=== PATIENT | male | born 1965 | race Caucasian/White ===

== ENCOUNTER 2016-06-10 06:04 | Day surgery (SDC) | payer BC, OTHER ==
[2016-06-06 15:48] VITALS: BMI 21.5
[~2016-06-10 06:04] MED LIST: DEXAMETHASONE SOD PHOSPHATE 10 MG/ML 1 ML VIAL IV ONE; HYDROmorphone 1 MG/ML 1 ML SYRINGE IVP PRN; LIDOCAINE 1% 20 ML VIAL (10MG/ML) FOR IV START INTRADERMA PRN; MIDAZOLAM 2 MG/2 ML VIAL IV PRN; ONDANSETRON 4 MG/2 ML VIAL IVP ONE; SCOPOLAMINE 1.5MG/72HR PATCH TRANSDERM ONE; ceFAZolin 2 GM in SODIUM CHLORIDE 0.9% 100 ML IVPB ONE
[2016-06-10] MEDS ORDERED: LIDOCAINE 1% 20 ML VIAL (10MG/ML) FOR IV START INTRADERMA ONE (06:36)
[2016-06-10] MEDS: LACTATED RINGERS 1,000 ML IV SCH ×3 (06:36→20:15)
[2016-06-10] MEDS ORDERED: MIDAZOLAM 2 MG/2 ML VIAL IV ONE (07:05)
[2016-06-10] MEDS ORDERED: PROPOFOL 10 MG/ML 20 ML VIAL IV ONE (07:28)
[2016-06-10] MEDS ORDERED: LIDOCAINE 1% INJ 10MG/ML (20 ML MDV) ONE (07:28)
[2016-06-10] MEDS ORDERED: fentaNYL (PF) 50 MCG/ML 2 ML AMP ONE (07:28)
[2016-06-10] MEDS ORDERED: GLYCOPYRROLATE 0.2 MG/ML 2 ML VIAL ONE (07:28)
[2016-06-10] MEDS ORDERED: MIDAZOLAM 2 MG/2 ML VIAL ONE (07:28)
[2016-06-10] MEDS ORDERED: ROCURONIUM BROMIDE 10 MG/ML 10 ML VIAL IV ONE (07:28)
[2016-06-10] MEDS ORDERED: SUCCINYLCHOLINE CHLORIDE 100 MG/5 ML SYR IV ONE (07:28)
[2016-06-10] MEDS ORDERED: LIDOCAINE 2%-EPI 1:100,000 20 ML VIAL ONE (07:28)
[2016-06-10] MEDS ORDERED: NEOSTIGMINE 1 MG/ML 10 ML VIAL ONE (07:28)
[2016-06-10] MEDS ORDERED: ROPIVACAINE 5 MG/ML 30 ML VIAL ONE (07:28)
[2016-06-10] MEDS ORDERED: ceFAZolin 1,000 MG in SODIUM CHLORIDE 0.9% 1,000 ML IRRIGATION ONE (08:02)
[2016-06-10] MEDS ORDERED: LACTATED RINGERS 1,000 ML IV ONE (08:02)
[2016-06-10] MEDS ORDERED: TEMAZEPAM 15 MG CAP PO PRN (09:23)
[2016-06-10] MEDS ORDERED: ONDANSETRON 4 MG/2 ML VIAL IVP PRN (09:23)
[2016-06-10] MEDS ORDERED: hydrOXYzine PAMOATE 25 MG CAP PO PRN (09:23)
[2016-06-10] MEDS ORDERED: HYDROmorphone 1 MG/ML 1 ML SYRINGE IVP PRN ×3 (09:23)
[2016-06-10] MEDS ORDERED: HYDROcodone/APAP 5-325MG 1 EACH TAB PO PRN (09:23)
[2016-06-10] MEDS ORDERED: SENNOSIDES-DOCUSATE SODIUM 1 EACH TAB PO PRN (09:23)
[2016-06-10] MEDS: HYDROcodone/APAP 5-325MG 1 EACH TAB PO PRN ×2 (11:58→17:48)
[2016-06-10] MEDS: ceFAZolin 2 GM in SODIUM CHLORIDE 0.9% 100 ML IVPB SCH ×2 (17:40→23:26)
--- NOTE | 2016-06-10 19:20 | P.HPIM ---
History of Present Illness H&P Date: 06/10/16 Chief Complaint: Right shoulder pain Patient is a 51-year-old male patient of Dr. Timmons who was complaining of right shoulder pain he failed conservative management he was evaluated by Dr. KILGORE and was admitted for surgical intervention on 06/10/2016. Consultation was requested for medical management postoperatively. Past medical history significant for #1 history of asthma #2 chronic tobacco use Past surgical history significant for Left shoulder surgery Appendectomy Hernia repair 2 Family history significant for multiple family members with hypertension and diabetes Social history patient lives at home he drinks alcohol once weekly he smokes half a pack per day he denies any illicit drug use Past Medical History Past Medical History: Asthma History of Any Multi-Drug Resistant Organisms: None Reported Past Surgical History: Hernia Repair, Orthopedic Surgery, Tonsillectomy Additional Past Surgical History / Comment(s): L shoulder surgery. SINUS SURGERY 2 YEARS AGO Past Anesthesia/Blood Transfusion Reactions: No Reported Reaction Additional Past Anesthesia/Blood Transfusion Reaction / Comment(s): States Father during surgery but was not sure what happened. Past Psychological History: No Psychological Hx Reported Smoking Status: Unknown if ever smoked Past Alcohol Use History: Occasional Additional Past Alcohol Use History / Comment(s): Drinks approx. 14 drinks per week, sometimes more, sometimes less. Smokes 1/2 PPD since young man. Past Drug Use History: None Reported - Past Family History Mother Family Medical History: No Reported History Father Family Medical History: Diabetes Mellitus Medications and Allergies Home Medications Medication Instructions Recorded Confirmed Type Albuterol Sulfate [Proair Hfa] 1 - 2 puff INHALATION Q6HR PRN 06/06/16 06/10/16 History Ibuprofen [Motrin] 800 mg PO DAILY 06/06/16 06/06/16 History Ipratropium/Albuterol Sulfate 1 - 2 puff INHALATION QID 06/06/16 06/10/16 History [Combivent Respimat Inhaler] LORazepam [Ativan] 2 mg PO HS 06/06/16 06/10/16 History Allergies Allergy/AdvReac Type Severity Reaction Status Date / Time No Known Allergies Allergy Verified 06/06/16 15:39 Physical Exam Vitals: Vital Signs Temp Pulse Pulse Pulse Resp BP BP 06/10/16 16:41 16 06/10/16 16:00 98.1 F 53 L 16 93/53 06/10/16 13:34 81 100/59 06/10/16 12:00 68 109/56 06/10/16 11:30 97.3 F L 50 L 16 95/50 06/10/16 11:20 60 18 111/64 06/10/16 10:45 67 18 98/60 06/10/16 10:16 56 L 18 102/63 06/10/16 10:00 53 L 18 105/65 06/10/16 09:46 52 L 18 102/64 06/10/16 09:31 66 18 111/60 06/10/16 09:22 70 16 101/57 06/10/16 07:17 76 18 104/65 06/10/16 06:39 98.5 F 85 18 111/70 Pulse Ox 06/10/16 16:41 06/10/16 16:00 93 L 06/10/16 13:34 92 L 06/10/16 12:00 91 L 06/10/16 11:30 93 L 06/10/16 11:20 94 L 06/10/16 10:45 94 L 06/10/16 10:16 92 L 06/10/16 10:00 92 L 06/10/16 09:46 98 06/10/16 09:31 99 06/10/16 09:22 98 06/10/16 07:17 95 06/10/16 06:39 92 L Intake and Output 06/10/16 06/10/16 06/10/16 06:59 14:59 22:59 Intake Total 500 1701 240 Output Total 50 Balance 500 1651 240 Intake: IV 500 1701 Oral 240 Output: Estimated Blood Loss 50 Other: Voiding Method Toilet # Voids 1 HEENT head normocephalic and atraumatic Neck is supple no JVD no goiter no lymphadenopathy Chest exam reveals a few scattered crackles no wheezing Cardiac exam reveals regular heart sounds no murmurs Abdomen is soft nontender no organomegaly Extremity exam reveals no edema no cyanosis or clubbing Thrombosis Risk Factor Assmnt - Choose All That Apply Any of the Below Risk Factors Present?: No Other Risk Factors: Yes Each Risk Factor Represents 2 Points: Age 61-74 years Thrombosis Risk Factor Assessment Total Risk Factor Score: 2 Thrombosis Risk Factor Assessment Level: Low Risk Assessment and Plan Plan: #1 right rotator cuff tear, status post acromioplasty with excision of distal clavicle and rotator cuff repair a #2 right elbow pain status post release of extensor tendon right elbow #3 asthma chronic without evidence of acute exacerbation at this time continue with albuterol inhaler as needed #4 tobacco use counseled to quit #5 sleep disturbance uses lorazepam 2 mg at bedtime given refill Continue was current management will follow in a.m. check labs in a.m. possible discharge to home tomorrow
--- NOTE | 2016-06-10 21:39 | OP ---
DATE OF SERVICE: 06/10/2016 SURGEON: RUSH CAMPOS DO PIPE COVERING MOLDER: Sadie Franco NP PREOPERATIVE DIAGNOSES: Chronic right rotator cuff tear. Right lateral epicondylitis right elbow. POSTOPERATIVE DIAGNOSES: Chronic right rotator cuff tear. Right lateral epicondylitis right elbow. OPERATION: Resection distal right clavicle, decompression acromioplasty, right rotator cuff repair utilizing two screws and lateral epicondyle release right elbow. ANESTHESIA: ESTIMATED BLOOD LOSS: SPECIMENS REMOVED: COMPLICATIONS: OPERATIVE FINDINGS: DESCRIPTION OF PROCEDURE: The patient was taken to the operating room suite and placed in supine position. General inhalation anesthesia was performed by the Department of Anesthesiology. The patient was placed in lateral position, beach chair position, added and secured. Betadine prep was carried out over the shoulder and right arm. Sterile drapes applied in the usual manner. A lateral incision was developed over the acromion. Sharp dissection was carried out through the subcutaneous tissues. The acromioclavicular ligament was identified and dissected. The 1 cm distal clavicle was excised with a bone saw. Anterior deltoid was released along the lateral border. The coracoacromial ligament is released. The anterior lateral decompression acromioplasty was performed. The width of the acromion was shaped with bone saw and bone rasp. The rotator cuff tear was identified and inspected with slight abduction. Two 5.5 screws were used for further stability within the humeral head. The area was then irrigated copiously with antibiotic solution. The deltoid was then reapproximated back into the acromion with #1 Ethibond suture. The deep fascia approximated with #1 Vicryl suture in a running fashion. Subcutaneous tissue approximated with 2-0 Vicryl suture in an interrupted fashion. The skin was approximated with 3-0 Quill suture in a subcuticular fashion. The Dermabond was utilized in sealing the wound. The right elbow was then approached with a lateral curved incision over the lateral condyle. Blunt dissection through the subcutaneous tissue was performed. The release conjoined tendon was carried out. Hemostasis was well controlled. The joint was inspected. The tendon reapproximated with #1 Vicryl suture. Further approximation of tendon was carried out. The area was irrigated. Subcutaneous tissue was reapproximated. The skin approximated with 3-0 Quill suture in a running subcuticular fashion. Betadine, Adaptic and sterile pressure dressing was applied both shoulder and elbow areas. He was placed in abductor pillow splint. Transferred to the recovery room in satisfactory postop condition. GROSS PATHOLOGY: There is evidence of a complete tear of the right rotator cuff and moderate retraction. There was evidence of right lateral epicondylitis that has been treated. YASHIRA
[2016-06-11 00:13] VITALS: RESP 18
[2016-06-11] MEDS: LACTATED RINGERS 1,000 ML IV SCH ×2 (03:14→04:40)
[2016-06-11 06:57] LABS: Basophils # (A) 0.1 k/uL (0-0.2); Basophils % (A) 1 %; CH 30.7; CHCM 31.8; Eosinophils # (A) 0.4 k/uL (0-0.7); Eosinophils % (A) 3 %; HCT 36.2 % (39.0-53.0); HDW 2.16; HGB 11.5 gm/dL (13.0-17.5); Luc # (Auto) 0.33; Luc % (Auto) 3; Lymphocytes # (A) 3.2 k/uL (1.0-4.8); Lymphocytes % (A) 27 %; MCH 30.7 pg (25.0-35.0); MCHC 31.6 g/dL (31.0-37.0); MCV 96.9 fL (80.0-100.0); Mean Platelet Volume 7.4; Monocytes # (A) 0.8 k/uL (0-1.0); Monocytes % (A) 7 %; Neutrophils # (A) 7.2 k/uL (1.3-7.7); Neutrophils % (A) 60 %; RBC 3.74 m/uL (4.30-5.90); RDW 13.2 % (11.5-15.5); WBC 11.9 k/uL (3.8-10.6); WBC (Perox) 12.58
[2016-06-11 07:09] LABS: ALT 25 U/L (21-72); AST 25 U/L (17-59); Alkaline Phosphatase 43 U/L (38-126); Anion Gap 8 mmol/L; Blood Urea Nitrogen 7 mg/dL (9-20); Carbon Dioxide 25 mmol/L (22-30); Chloride 107 mmol/L (98-107); Glucose 91 mg/dL (74-99); Non-African American GFR(MDRD) >60 (>60 ml/min/1.73 sqM); Potassium 3.8 mmol/L (3.5-5.1); Sodium 140 mmol/L (137-145); Total Bilirubin 0.3 mg/dL (0.2-1.3); Total Protein 5.1 g/dL (6.3-8.2)
[2016-06-11 08:09] VITALS: BP 110/56; PULSE 64; TEMP 98.8
[2016-06-11] MEDS ORDERED: CYCLOBENZAPRINE 10 MG TAB PO PRN (08:36)
[2016-06-11] MEDS ORDERED: IBUPROFEN 800 MG TAB PO PRN (08:36)
--- NOTE | 2016-06-11 08:44 | P.DS ---
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 The patient presented to the orthopedic office for evaluation. After discussion and consideration patient elects to proceed with a rotator cuff repair. The patient is seen preoperatively by his primary care physician and cleared for surgery. Patient is admitted to observation at [facility] on 05/13/2016 for right shoulder rotator cuff repair with distal clavicle excision and acromioplasty and right lateral epicondylar release. The procedures performed without complication or sequelae. The patient is doing well postoperatively. Labs and vital signs are stable on day of discharge. On day of discharge patient's shoulder and elbow incision is healing well. There is minimal erythema. There is no drainage noted at this time. There is minimal soft tissue swelling to the right upper extremity including the hand. Patient has full hand and wrist, motion without difficulty or pain. Neurovascular status to the right upper extremity is intact. Patient is discharged to home in good condition. Patient Condition at Discharge: Stable Plan - Discharge Summary New Discharge Prescriptions: Cephalexin [Keflex] 500 mg PO Q8HR #15 cap Ibuprofen [Motrin] 800 mg PO Q8HR PRN #90 tab PRN Reason: Pain Cyclobenzaprine [Flexeril] 10 mg PO TID PRN #40 tab PRN Reason: Muscle Spasm Sennosides-Docusate Sodium [Senokot-S] 2 tab PO DAILY #30 tablet Discharge Medication List Albuterol Sulfate [Proair Hfa] 1 - 2 puff INHALATION Q6HR PRN 06/06/16 [History] Ibuprofen [Motrin] 800 mg PO DAILY 06/06/16 [History] Ipratropium/Albuterol Sulfate [Combivent Respimat Inhaler] 1 - 2 puff INHALATION QID 06/06/16 [History] LORazepam [Ativan] 2 mg PO HS 06/06/16 [History] Cephalexin [Keflex] 500 mg PO Q8HR #15 cap 06/10/16 [Rx] Sennosides-Docusate Sodium [Senokot-S] 2 tab PO DAILY #30 tablet 06/10/16 [Rx] Cyclobenzaprine [Flexeril] 10 mg PO TID PRN #40 tab 06/11/16 [Rx] Ibuprofen [Motrin] 800 mg PO Q8HR PRN #90 tab 06/11/16 [Rx] Follow up Appointment(s)/Referral(s): Cristino Jalloh DO [Doctor of Osteopathic Medicine] - 2 Weeks Patient Instructions/Handouts: *Surgery [facility] - Shoulder Arthroscopy Activity/Diet/Wound Care/Special Instructions: Keep incision clean and dry Change dressing daily May shower in 3 days if no drainage from incision Keep arm sling/abductor pillow in place except when bathing Follow up with Dr. Jalloh in 2 weeks. Call [facility] with any questions or concerns. [phone] Discharge Disposition: HOME SELF-CARE
== END 2016-06-11 11:55 | disposition home or self-care (01) ==
LOC: OR 06:04 → 3OBS 09:10 → OR 06-11 11:55
PROVIDERS: ATTEND Orthopaedic Surgery
DX: M75.101 Unspecified rotator cuff tear or rupture of right shoulder, not specified as traumatic (principal); M77.11 Lateral epicondylitis, right elbow; I10 Essential (primary) hypertension; J45.909 Unspecified asthma, uncomplicated; F17.200 Nicotine dependence, unspecified, uncomplicated; Z79.1 Long term (current) use of non-steroidal anti-inflammatories (NSAID); Z79.899 Other long term (current) drug therapy
CPT/HCPCS: 64415; 80053; 85025; 88300; 23412; 23130; 23120; C1713; J2250; J1100; J2710; J0690 ×2; J2405; J2001; J3010; J1170; J2795; J0330; J2704

== ENCOUNTER 2016-11-21 22:52 | Emergency (ER) | payer BC ==
[2016-11-21 23:09] VITALS: RESP 18
--- NOTE | 2016-11-21 23:18 | ED ---
Upper Extremity HPI <LeslieEz - Last Filed: 11/22/16 01:24> - General Source: patient Mode of arrival: wheelchair Limitations: no limitations - History of Present Illness Place: outdoors <Sola Hull - Last Filed: 11/22/16 01:32> - General Chief Complaint: Extremity Injury, Upper Stated Complaint: Fall/Arm Pain Time Seen by Provider: 11/21/16 23:10 - History of Present Illness Initial Comments: 51-year-old male patient presents to emergency department today for evaluation of left shoulder pain. Patient states that he was outside peeing when he fell into the wall of his shed, he states he did go through the wall causing injury to his shoulder. He denies hitting his head or losing consciousness. He states that he is unable to move his arm without severe pain. He denies any numbness or tingling to the extremity. Denies any difficulty with range of motion or pain in his elbow. Denies any difficulty with range of motion or pain in his wrist. Patient denies any headache, neck pain, back pain, chest pain , shortness of breath, dizziness, weakness, abdominal pain, nausea, vomiting, or difficulties with bowel movements or urination. She admits to being intoxicated. His last tetanus vaccine was 3 years ago. (Sola Hull) - Related Data Home Medications Medication Instructions Recorded Confirmed Albuterol Sulfate [Proair Hfa] 1 - 2 puff INHALATION RT-Q6H PRN 06/06/16 Ipratropium/Albuterol Sulfate 1 - 2 puff INHALATION RT-QID 06/06/16 11/21/16 [Combivent Respimat Inhaler] LORazepam [Ativan] 2 mg PO HS 06/06/16 11/21/16 Previous Rx's Medication Instructions Recorded Ibuprofen [Motrin] 800 mg PO Q8HR PRN #90 tab 06/11/16 traMADol HCl [Ultram] 50 mg PO Q6H PRN #20 tab 11/22/16 Allergies Allergy/AdvReac Type Severity Reaction Status Date / Time No Known Allergies Allergy Verified 11/21/16 23:19 Review of Systems ROS Other: All systems not noted in ROS Statement are negative. <Ez Nelson - Last Filed: 11/22/16 01:24> ROS Other: All systems not noted in ROS Statement are negative. <Sola Hull M - Last Filed: 11/22/16 01:32> ROS Statement: Those systems with pertinent positive or pertinent negative responses have been documented in the HPI. Past Medical History Past Medical History: Asthma History of Any Multi-Drug Resistant Organisms: None Reported Past Surgical History: Hernia Repair, Orthopedic Surgery, Tonsillectomy Additional Past Surgical History / Comment(s): L shoulder surgery. SINUS SURGERY 2 YEARS AGO Past Anesthesia/Blood Transfusion Reactions: No Reported Reaction Additional Past Anesthesia/Blood Transfusion Reaction / Comment(s): States Father during surgery but was not sure what happened. Past Psychological History: No Psychological Hx Reported Smoking Status: Current every day smoker Past Alcohol Use History: Occasional Past Drug Use History: None Reported - Past Family History Mother Family Medical History: No Reported History Father Family Medical History: Diabetes Mellitus <Sola Hull - Last Filed: 11/22/16 01:32> General Exam Limitations: no limitations General appearance: alert, in no apparent distress, appears intoxicated Head exam: Present: normocephalic, normal inspection. Absent: atraumatic Eye exam: Present: normal appearance, PERRL, EOMI, other (Small abrasion to the left periorbital area, bleeding controlled.). Absent: scleral icterus, conjunctival injection, periorbital swelling ENT exam: Present: normal exam, normal oropharynx, mucous membranes moist, TM's normal bilaterally Neck exam: Present: normal inspection, full ROM, other (Nontender, no step-off, no deformity to firm midline palpation of the posterior cervical spine. Full range of motion without pain or limitation.). Absent: tenderness, meningismus, lymphadenopathy Respiratory exam: Present: normal lung sounds bilaterally. Absent: respiratory distress, wheezes, rales, rhonchi, stridor Cardiovascular Exam: Present: regular rate, normal rhythm, normal heart sounds. Absent: systolic murmur, diastolic murmur, rubs, gallop, clicks GI/Abdominal exam: Present: soft, normal bowel sounds. Absent: distended, tenderness, guarding, rebound, rigid Extremities exam: Present: tenderness (Tender over the anterior and acromioclavicular joint. ), normal capillary refill, other (Radial pulses strong and equal bilaterally.). Absent: normal inspection (Deformity noted to left anterior shoulder.), full ROM (Take his range of motion due to severe pain with movement.), pedal edema, joint swelling, calf tenderness Back exam: Present: normal inspection, other (Nontender, no step-off, no deformity to firm midline palpation of the thoracic and lumbar vertebrae. Full range of motion without pain or limitation.). Absent: tenderness, vertebral tenderness Neurological exam: Present: alert, oriented X3, CN II-XII intact Psychiatric exam: Present: normal affect, normal mood Skin exam: Present: warm, dry, intact, normal color. Absent: rash <Sola Hull - Last Filed: 11/22/16 01:32> Procedures - Orthopedic Joint Reduction Joint #1 Consent Obtained: written consent Time Out Performed: Yes Side: left Joint Reduction Location: shoulder Analgesia: procedural sedation Shoulder Technique Used (if applicable): external rotation Post-Reduction Neuro Exam: intact Post-Reduction Vascular Exam: intact Post Reduction X-Ray Obtained: Yes Post Reduction X-Ray Results: reduced Splint Applied: Yes (Shoulder immobilizer) Patient Tolerated Procedure: well - Procedural Sedation Procedural Sedation Start Time: 01:04 Procedural Sedation Stop Time: 01:20 Indications: fracture/dislocation reduction ASA Class: I Mallampati Airway Score: 2 Preparation: specimen technician applied, pulse oximeter, supplemental O2 applied, suction/airway equipment at bedside, IV secured IV Etomidate Dose (mgs): 14 Complications: none Patient Tolerated Procedure: well <Ez Nelson - Last Filed: 11/22/16 01:24> Medical Decision Making <Ez Nelson - Last Filed: 11/22/16 01:24> <Sola Hull - Last Filed: 11/22/16 01:32> - Medical Decision Making I saw this patient in conjunction with the physician laboratory chemical assistant. I performed independent history and physical exam. Agree with case management. (Ez Nelson) 51-year-old male patient presented for left shoulder pain. X-ray of the shoulder did show an anterior dislocation. Dr. Nelson my attending was and we did do procedural sedation, shoulder was reduced, postreduction x-ray was performed and did show good joint alignment. Patient is now alert and oriented. Maintaining his own airway. Patient will be given pain medication for home. He will be discharged into the care of his . Instructed to follow-up with orthopedics for recheck in 1-2 days, patient sees Dr. Jalloh for management of other orthopedic issues so referral will be made back to him. Instructed to return here immediately for any new, worsening, or concerning symptoms. Patient and verbalize understanding and agrees this plan. (Sola Hull) Disposition <Ez Nelson - Last Filed: 11/22/16 01:24> Time of Disposition: 01:30 <Sola Hull - Last Filed: 11/22/16 01:32> Clinical Impression: Anterior dislocation of left shoulder Disposition: HOME SELF-CARE Condition: Good Instructions: Shoulder Dislocation (ED) Additional Instructions: Apply ice to shoulder 20 minutes at a time at least 4 times daily. Use sling until follow-up with orthopedics. Follow up with your primary care physician for recheck in 1-2 days. Return here immediately for any new, worsening, or concerning symptoms. Prescriptions: traMADol HCl [Ultram] 50 mg PO Q6H PRN #20 tab PRN Reason: Pain Referrals: Lashawn Timmons MD [Primary Care Provider] - 1-2 days Cristino Jalloh DO [Doctor of Osteopathic Medicine] - 1-2 days
--- NOTE | 2016-11-21 23:29 | XR ---
EXAM: XR Left Shoulder Complete, 2 or More Views CLINICAL HISTORY: Reason: Pain TECHNIQUE: Two or more views of the left shoulder. COMPARISON: No relevant prior studies available. FINDINGS: Bones/joints: Anterior shoulder dislocation. No acute fracture. Soft tissues: Unremarkable. IMPRESSION: Anterior shoulder dislocation. No acute fracture.
[2016-11-22] MEDS ORDERED: ETOMIDATE 2 MG/ML 10 ML VIAL IVP STA (00:49)
[2016-11-22 01:44] VITALS: BP 119/70; PULSE 90; TEMP 97.9
--- NOTE | 2016-11-22 02:09 | XR ---
EXAM: XR Left Shoulder Complete, 2 or More Views CLINICAL HISTORY: Reason: Pain TECHNIQUE: Two or more views of the left shoulder. COMPARISON: 11/21/2016 2321 FINDINGS: Bones/joints: Successful reduction of an anterior left shoulder dislocation. No acute fracture. Soft tissues: Unremarkable. IMPRESSION: Successful reduction of an anterior left shoulder dislocation. No acute fracture.
== END 2016-11-22 01:45 | disposition home or self-care (01) ==
LOC: EC 22:52
DX: S43.015A Anterior dislocation of left humerus, initial encounter (principal); J45.909 Unspecified asthma, uncomplicated; F17.200 Nicotine dependence, unspecified, uncomplicated; Z79.899 Other long term (current) drug therapy; W01.198A Fall on same level from slipping, tripping and stumbling with subsequent striking against other object, initial encounter; Y92.89 Other specified places as the place of occurrence of the external cause
CPT/HCPCS: 23650; 99152; 99283

== ENCOUNTER 2017-02-08 14:23 | Emergency (ER) | payer BC ==
--- NOTE | 2017-02-08 15:00 | XR ---
EXAMINATION TYPE: XR ribs LT w pa chest xray DATE OF EXAM: 02/08/2017 COMPARISON: NONE HISTORY: Rib pain TECHNIQUE: 5 views FINDINGS: Heart and mediastinum are normal. There is no sign of pleural effusion or pneumothorax. The re are nondisplaced fractures of the anterior left ninth eighth and seventh ribs. There is increased density below the right pulmonary hilum on the frontal view. IMPRESSION: Multiple nondisplaced left rib fractures. Infiltrate below the right pulmonary hilum late ral chest x-ray would be helpful if clinically indicated. Normal heart.
--- NOTE | 2017-02-08 15:45 | XR ---
EXAMINATION TYPE: XR chest 1V DATE OF EXAM: 02/08/2017 COMPARISON: NONE HISTORY: Chest pain TECHNIQUE: Single frontal view of the chest is obtained. FINDINGS: A lateral view was obtained. I do not see evidence for an infiltrate in the inferior right pulmonary hilum region that is suggested by the frontal view. This apparently relates to calcified c ostal cartilage. IMPRESSION: No evidence of a pulmonary infiltrate.
--- NOTE | 2017-02-08 15:56 | ED ---
General Adult HPI - General Chief complaint: Chest Pain Stated complaint: Rib pain Time Seen by Provider: 02/08/17 14:35 Source: patient Mode of arrival: ambulatory Limitations: no limitations - History of Present Illness Initial comments: This is a 51-year-old male patient who presents to the emergency department today for evaluation of left-sided rib pain. patient states that on Thursday he [place] when he tripped and fell landing on the left side of his chest. He states he had a cell phone and glasses in his pocket which dug into his ribs when he fell. He states that since that he has been having sharp pain to the left sided ribs, states that pain increases when he takes deep breaths, twists, or moves. States he was unable to sleep last night due to the pain. He states he has been taking some leftover [place] that he had from a surgery. States that it is only helping minimally with the pain. He denies any shortness of breath, cough, or hemoptysis with this. He denies any his head or losing consciousness during the fall. Patient denies any headache, neck pain, back pain, dizziness, weakness, abdominal pain, nausea, vomiting, or difficulties with bowel movements or urination. - Related Data Home Medications Medication Instructions Recorded Confirmed Albuterol Sulfate [Proair Hfa] 1 - 2 puff INHALATION RT-Q6H PRN 06/06/16 Ipratropium/Albuterol Sulfate 1 - 2 puff INHALATION RT-QID 06/06/16 02/08/17 [Combivent Respimat Inhaler] Acetaminophen [Tylenol Extra 1,000 mg PO Q6H PRN 01/02/17 02/08/17 Strength] Previous Rx's Medication Instructions Recorded Ibuprofen [Motrin] 800 mg PO Q8HR PRN #90 tab 06/11/16 HYDROcodone/APAP 10-325MG [[place] 1 - 2 tab PO Q4-6H PRN #90 tab 01/06/17 10-325] Sennosides-Docusate Sodium 2 tab PO DAILY #30 tablet 01/06/17 [Senokot-S] Hydrocodone/Acetaminophen [[place] 1 tab PO Q6HR PRN #24 tab 02/08/17 5-325] Allergies Allergy/AdvReac Type Severity Reaction Status Date / Time No Known Allergies Allergy Verified 02/08/17 14:32 Review of Systems ROS Statement: Those systems with pertinent positive or pertinent negative responses have been documented in the HPI. ROS Other: All systems not noted in ROS Statement are negative. Past Medical History Past Medical History: Asthma, Musculoskeletal Disorder Additional Past Medical History / Comment(s): LT SHOULDER ROTATOR CUFF TEAR. VARICOSE VEINS. History of Any Multi-Drug Resistant Organisms: None Reported Past Surgical History: Appendectomy, Hernia Repair, Orthopedic Surgery, Tonsillectomy Additional Past Surgical History / Comment(s): BLUE shoulder surgery. HERNIA X2. SINUS SURGERY 2 YEARS AGO Past Anesthesia/Blood Transfusion Reactions: No Reported Reaction Additional Past Anesthesia/Blood Transfusion Reaction / Comment(s): States Father during surgery but was not sure what happened, HAD BAD HEART. Past Psychological History: No Psychological Hx Reported Smoking Status: Current every day smoker Past Alcohol Use History: Occasional Past Drug Use History: None Reported - Past Family History Mother Family Medical History: No Reported History Father Family Medical History: Coronary Artery Disease (CAD), Diabetes Mellitus General Exam Limitations: no limitations General appearance: alert, in no apparent distress, other (this is a well- developed, well-nourished adult male patient in no acute distress. Vital signs upon presentation are temperature 98.1F, pulse 62, respirations 18, blood pressure 126/59, pulse ox 95% on room air.) Head exam: Present: atraumatic, normocephalic, normal inspection Eye exam: Present: normal appearance, PERRL, EOMI. Absent: scleral icterus, conjunctival injection, periorbital swelling ENT exam: Present: normal exam, normal oropharynx, mucous membranes moist Neck exam: Present: normal inspection, full ROM, other (Nontender, no step-off, no deformity to firm midline palpation of the posterior cervical spine. Full range of motion without pain or limitation.). Absent: tenderness, meningismus, lymphadenopathy Respiratory exam: Present: normal lung sounds bilaterally, chest wall tenderness (left-sided rib with tenderness over the mid axillary line.), other ( yellowish area of ecchymosis noted to the left ribs over the midaxillary line.) . Absent: respiratory distress, wheezes, rales, rhonchi, stridor Cardiovascular Exam: Present: regular rate, normal rhythm, normal heart sounds. Absent: systolic murmur, diastolic murmur, rubs, gallop, clicks GI/Abdominal exam: Present: soft, normal bowel sounds. Absent: distended, tenderness, guarding, rebound, rigid Back exam: Present: normal inspection, other (Nontender, no step-off, no deformity to firm midline palpation of the thoracic and lumbar vertebrae. Full range of motion without pain or limitation.). Absent: tenderness, vertebral tenderness Neurological exam: Present: alert, oriented X3, CN II-XII intact Psychiatric exam: Present: normal affect, normal mood Skin exam: Present: warm, dry, intact, normal color. Absent: rash Course Vital Signs 02/08/17 02/08/17 14:28 16:15 Temperature 98.1 F 98 F Pulse Rate 62 84 Respiratory 18 20 Rate Blood Pressure 126/59 130/87 O2 Sat by Pulse 95 98 Oximetry Medical Decision Making - Medical Decision Making 51-year-old male patient presented to the emergency department today for evaluation of left-sided rib pain after a fall on Thursday. Physical examination did reveal some ecchymosis over the left lateral ribs near the midaxillary line. Patient was also tender to this area. Patient did have good air movement in his lungs with no adventitious sounds noted. X-ray of the PA chest and left ribs was obtained and showed multiple rib fractures, left including the seventh, eighth, and ninth ribs. There was evidence of a possible infiltrate on the right hilar region, we did obtain a lateral chest x-ray as well to further evaluate this spot, there is no evidence for infiltrate on the lateral view. Patient has no cough, sputum production, or fever. Patient be discharged home with pain medication and instructions to perform coughing and deep breathing exercises. He was given incentive spirometry education here in the department. He is instructed to return here immediately for any new, worsening, or concerning symptoms. He verbalizes understanding and agrees with this plan. - Radiology Data Radiology results: report reviewed, image reviewed 5 views of the ribs and chest shows a heart and mediastinum are normal. There is no sign of pleural effusion or pneumothorax. There are nondisplaced fractures of the anterior left ninth, eighth, and seventh ribs. There is increased density below the right pulmonary hilum on the frontal view. Impression by Dr. Preston shows multiple nondisplaced left rib fractures. Infiltrate below the right pulmonary hilum lateral chest x-ray would be helpful if clinically indicated. Normal heart. One view x-ray of the chest, lateral view was obtained. I do not see evidence for an infiltrate in the inferior right pulmonary hilum region that is suggestive of the frontal view. This apparently related to calcified costal cartilage. Impression by Dr. Preston shows no evidence of a pulmonary infiltrate. Disposition Clinical Impression: Ribs, multiple fractures Disposition: HOME SELF-CARE Condition: Good Instructions: Rib Fracture (ED) Additional Instructions: Take medications as directed. Use incentive spirometry as directed. Perform coughing and deep breathing exercises, splint your chest with a pillow while you do this.Follow-up with her primary care physician for recheck in 1-2 days. Return here immediately for any new, worsening, or concerning symptoms. Prescriptions: Hydrocodone/Acetaminophen [[place] 5-325] 1 tab PO Q6HR PRN #24 tab PRN Reason: Pain Referrals: Lashawn Timmons MD [Primary Care Provider] - 1-2 days Time of Disposition: 15:55
[2017-02-08 16:16] VITALS: BP 130/87; PULSE 84; RESP 20; TEMP 98
== END 2017-02-08 16:10 | disposition home or self-care (01) ==
LOC: EC 14:23
DX: S22.42XA Multiple fractures of ribs, left side, initial encounter for closed fracture (principal); R91.8 Other nonspecific abnormal finding of lung field; J45.909 Unspecified asthma, uncomplicated; F17.200 Nicotine dependence, unspecified, uncomplicated; Z79.899 Other long term (current) drug therapy; Z82.49 Family history of ischemic heart disease and other diseases of the circulatory system; W01.198A Fall on same level from slipping, tripping and stumbling with subsequent striking against other object, initial encounter; Y93.01 Activity, walking, marching and hiking; Y92.89 Other specified places as the place of occurrence of the external cause
CPT/HCPCS: 71010; 99284

== ENCOUNTER → 2019-04-06 | Outpatient (CLI) | payer BC ==
--- NOTE | 2019-04-06 15:14 | US ---
EXAMINATION TYPE: US venous doppler duplex LE RT DATE OF EXAM: 04/06/2019 2:49 PM COMPARISON: NONE CLINICAL HISTORY: RT Lower M79.661 Pain in right lower leg. Burning sensation and lump right medial k nee SIDE PERFORMED: Right TECHNIQUE: The lower extremity deep venous system is examined utilizing real time linear array sonog elissa with graded compression, doppler sonography and color-flow sonography. VESSELS IMAGED: External Iliac Vein (EIV) Common Femoral Vein Deep Femoral Vein Greater Saphenous Vein * Femoral Vein Popliteal Vein Small Saphenous Vein * Proximal Calf Veins (* superficial vessels) Right Leg: No evidence of DVT. Superficial thrombus noted within area of concern, right medial knee IMPRESSION: 1. Right lower extremity ultrasound negative for deep venous thrombosis. 2. Superficial thrombus is evident at the level of the knee which correlates with area of concern for the patient by palpation
== END | disposition home or self-care (01) ==
LOC: RADUSWWP 14:17
PROVIDERS: ATTEND Family Medicine
DX: I82.90 Acute embolism and thrombosis of unspecified vein (principal); I82.811 Embolism and thrombosis of superficial veins of right lower extremity

== ENCOUNTER 2019-08-29 15:32 | Inpatient (IN) | payer BC ==
[2019-08-29 15:39] LABS: Glucose,Whole Blood 209 mg/dL (75-99)
--- NOTE | 2019-08-29 15:49 | ED ---
Neuro HPI - General Chief Complaint: Neuro Symptoms/Deficit Stated Complaint: lt sided numbness/weakness Time Seen by Provider: 08/29/19 15:35 Source: patient, RN notes reviewed, old records reviewed Mode of arrival: ambulatory Limitations: no limitations - History of Present Illness Is the patient presenting with stroke symptoms?: Yes -: awoke with symptoms Initial Comments: This is a 54-year-old male with history of smoking coming in for evaluation of strokelike symptoms. Patient has left-sided neglect and weakness left arm weakness and left-sided facial weakness. Patient prior history of severe heart attack. No traumas, no other complaints. Patient states again that he awoke with symptoms today and the symptoms have been consistent not getting worse not getting better Location: left face, left arm Place: home Severity: moderate Quality: weak, tingling Improves With: none Worsens With: none On Anticoagulants: No Context: sudden onset Associated Symptoms: denies other symptoms Treatments Prior to Arrival: none - Related Data Home Medications: Home Medications Medication Instructions Recorded Confirmed Albuterol Sulfate [Proair Hfa] 2 puff INHALATION RT-Q6H PRN 06/06/16 08/29/19 Diclofenac Potassium [Cataflam] 50 mg PO BID PRN 08/29/19 08/29/19 Fluticasone/Umeclidin/Vilanter 1 puff INHALATION RT-DAILY 08/29/19 08/29/19 [Trelegy Ellipta 100-62.5-25] LORazepam [Ativan] 1 mg PO HS 08/29/19 08/29/19 Magnesium Oxide 400 mg PO HS 08/29/19 08/29/19 QUEtiapine [SEROquel] 100 mg PO HS 08/29/19 08/29/19 Allergies/Adverse Reactions: Allergies Allergy/AdvReac Type Severity Reaction Status Date / Time No Known Allergies Allergy Verified 08/29/19 16:40 Review of Systems ROS Statement: Those systems with pertinent positive or pertinent negative responses have been documented in the HPI. ROS Other: All systems not noted in ROS Statement are negative. General Exam - General Exam Comments Initial Comments: NIH of 3 Limitations: no limitations General appearance: alert, in no apparent distress Head exam: Present: atraumatic, normocephalic, normal inspection Eye exam: Present: normal appearance, PERRL, EOMI. Absent: scleral icterus, conjunctival injection, periorbital swelling ENT exam: Present: normal exam, mucous membranes moist Neck exam: Present: normal inspection. Absent: tenderness, meningismus, lymphadenopathy Respiratory exam: Present: normal lung sounds bilaterally. Absent: respiratory distress, wheezes, rales, rhonchi, stridor Cardiovascular Exam: Present: regular rate, normal rhythm, normal heart sounds. Absent: systolic murmur, diastolic murmur, rubs, gallop, clicks GI/Abdominal exam: Present: soft, normal bowel sounds. Absent: distended, ten derness, guarding, rebound, rigid Extremities exam: Present: normal inspection, full ROM, normal capillary refill. Absent: tenderness, pedal edema, joint swelling, calf tenderness Back exam: Present: normal inspection Neurological exam: Present: alert, oriented X3, CN II-XII intact Psychiatric exam: Present: normal affect, normal mood Skin exam: Present: warm, dry, intact, normal color. Absent: rash Stroke MDM - Lab Data Result diagrams: 08/29/19 17:02 08/29/19 17:02 Lab Results 08/29/19 08/29/19 08/29/19 Range/Units 15:38 17:02 17:02 WBC 7.2 (3.8-10.6) k/uL RBC 4.57 (4.30-5.90) m/uL Hgb 13.9 (13.0-17.5) gm/dL Hct 44.0 (39.0-53.0) % MCV 96.2 (80.0-100.0) fL MCH 30.4 (25.0-35.0) pg MCHC 31.6 (31.0-37.0) g/dL RDW 14.5 (11.5-15.5) % Plt Count 274 (150-450) k/uL Neutrophils % 71 % Lymphocytes % 17 % Monocytes % 7 % Eosinophils % 2 % Basophils % 1 % Neutrophils # 5.1 (1.3-7.7) k/uL Lymphocytes # 1.2 (1.0-4.8) k/uL Monocytes # 0.5 (0-1.0) k/uL Eosinophils # 0.2 (0-0.7) k/uL Basophils # 0.0 (0-0.2) k/uL PT 9.7 (9.0-12.0) sec INR 0.9 (<1.2) APTT 23.9 (22.0-30.0) sec Sodium (137-145) mmol/L Potassium (3.5-5.1) mmol/L Chloride (98-107) mmol/L Carbon Dioxide (22-30) mmol/L Anion Gap mmol/L BUN (9-20) mg/dL Creatinine (0.66-1.25) mg/dL Est GFR (CKD-EPI)AfAm (>60 ml/min/1.73 sqM) Est GFR (CKD-EPI)NonAf (>60 ml/min/1.73 sqM) Glucose (74-99) mg/dL POC Glucose (mg/dL) 209 H (75-99) mg/dL POC Glu Baby Nurse PATTI Adilia Christine Calcium (8.4-10.2) mg/dL Total Bilirubin (0.2-1.3) mg/dL AST (17-59) U/L ALT (4-49) U/L Alkaline Phosphatase (38-126) U/L Troponin I (0.000-0.034) ng/mL Total Protein (6.3-8.2) g/dL Albumin (3.5-5.0) g/dL 08/29/19 08/29/19 Range/Units 17:02 17:02 WBC (3.8-10.6) k/uL RBC (4.30-5.90) m/uL Hgb (13.0-17.5) gm/dL Hct (39.0-53.0) % MCV (80.0-100.0) fL MCH (25.0-35.0) pg MCHC (31.0-37.0) g/dL RDW (11.5-15.5) % Plt Count (150-450) k/uL Neutrophils % % Lymphocytes % % Monocytes % % Eosinophils % % Basophils % % Neutrophils # (1.3-7.7) k/uL Lymphocytes # (1.0-4.8) k/uL Monocytes # (0-1.0) k/uL Eosinophils # (0-0.7) k/uL Basophils # (0-0.2) k/uL PT (9.0-12.0) sec INR (<1.2) APTT (22.0-30.0) sec Sodium 138 (137-145) mmol/L Potassium 4.4 (3.5-5.1) mmol/L Chloride 106 (98-107) mmol/L Carbon Dioxide 27 (22-30) mmol/L Anion Gap 5 mmol/L BUN 13 (9-20) mg/dL Creatinine 0.84 (0.66-1.25) mg/dL Est GFR (CKD-EPI)AfAm >90 (>60 ml/min/1.73 sqM) Est GFR (CKD-EPI)NonAf >90 (>60 ml/min/1.73 sqM) Glucose 186 H (74-99) mg/dL POC Glucose (mg/dL) (75-99) mg/dL POC Glu Baby Nurse ID Calcium 9.1 (8.4-10.2) mg/dL Total Bilirubin 0.3 (0.2-1.3) mg/dL AST 27 (17-59) U/L ALT 17 (4-49) U/L Alkaline Phosphatase 57 (38-126) U/L Troponin I <0.012 (0.000-0.034) ng/mL Total Protein 6.3 (6.3-8.2) g/dL Albumin 3.7 (3.5-5.0) g/dL - NIH Stroke Scale 1a. Level of Consciousness: (0) alert 1b. LOC Questions: (0) answers correctly 1c. LOC Commands: (0) performs tasks correctly 2. Best Gaze: (0) normal 3. Visual: (0) no visual loss 4. Facial Palsy: (1) minor paralysis 5a. Motor Arm Left: (2) some gravity effort 5b. Motor Arm Right: (0) no drift 6a. Motor Leg Left: (0) no drift 6b. Motor Leg Right: (0) no drift 7. Limb Ataxia: (0) absent 8. Sensory: (0) normal 9. Best Language: (0) no aphasia 10. Dysarthria: (0) normal 11. Extinction/Inattention: (1) visual/tactile inattention - Thrombolytic Inclusion/Exclusion Thrombolytic Exclusion Criteria: Onset of Symptoms Unknown - Medical Decision Making 54 male DF for evaluation found of acute CVA patient will be started on aspirin admitted for MRI tomorrow, neurology evaluation - Radiology Data Radiology results: report reviewed (CT CT had neck negative for acute disease), image reviewed - EKG Data -: EKG Interpreted by Me (EKG shows sinus rhythm of 60, ND 176 QRS 108 QTc 421) Past Medical History Past Medical History: Asthma, Musculoskeletal Disorder Additional Past Medical History / Comment(s): LT SHOULDER ROTATOR CUFF TEAR. VARICOSE VEINS. History of Any Multi-Drug Resistant Organisms: None Reported Past Surgical History: Appendectomy, Hernia Repair, Orthopedic Surgery, Tonsillectomy Additional Past Surgical History / Comment(s): BLUE shoulder surgery. HERNIA X2. SINUS SURGERY 2 YEARS AGO Past Anesthesia/Blood Transfusion Reactions: No Reported Reaction Additional Past Anesthesia/Blood Transfusion Reaction / Comment(s): States Father during surgery but was not sure what happened, HAD BAD HEART. Past Psychological History: No Psychological Hx Reported Smoking Status: Current every day smoker Past Alcohol Use History: Occasional Past Drug Use History: None Reported - Past Family History Mother Family Medical History: No Reported History Father Family Medical History: Coronary Artery Disease (CAD), Diabetes Mellitus Course Vital Signs 08/29/19 08/29/19 08/29/19 15:35 16:14 16:29 Temperature 98.4 F 98.4 F Pulse Rate 68 68 58 L Respiratory 18 18 16 Rate Blood Pressure 149/94 149/94 116/86 O2 Sat by Pulse 97 97 96 Oximetry 08/29/19 08/29/19 08/29/19 16:44 16:59 17:29 Temperature Pulse Rate 63 56 L 57 L Respiratory 15 16 16 Rate Blood Pressure 123/80 130/80 125/84 O2 Sat by Pulse 97 96 97 Oximetry 08/29/19 18:00 Temperature Pulse Rate 54 L Respiratory 16 Rate Blood Pressure 135/85 O2 Sat by Pulse 97 Oximetry - Reevaluation(s) Reevaluation #1: 08/29/19 18:17 Medical records reviewed Reevaluation #2: 08/29/19 18:17 Significant improvement in symptoms here in the ER Reevaluation #3: 08/29/19 18:17 Code stroke was paged on patient arrival to emergency department, neuro intervention states no need for TPA - Consultations Consultation #1: Spoke with Dr. Pedro who agrees to admit patient Critical Care Time Critical Care Time: Yes Total Critical Care Time: 31 Disposition Clinical Impression: Cerebrovascular accident (CVA) Disposition: ADMITTED IP TO THIS HOSP Condition: Fair Is patient prescribed a controlled substance at d/c from ED?: No Referrals: Lashawn Timmons MD [Primary Care Provider] - 1-2 days
[2019-08-29] MEDS ORDERED: SODIUM CHLORIDE 0.9% 1,000 ML IV STA (16:27)
[2019-08-29] MEDS ORDERED: ASPIRIN 325 MG TAB PO STA (16:32)
--- NOTE | 2019-08-29 16:43 | CT ---
EXAMINATION TYPE: CODE STROKE: CT brain wo contr DATE OF EXAM: 08/29/2019 COMPARISON: None HISTORY: Left sided weakness. CT DLP: 1062.4 mGycm Automated exposure control for dose reduction was used. FINDINGS: Asymmetric effacement of the sulci overlying the right temporal parietal lobe as compared to the left is noted, some ill-defined low-attenuation is present within the subcortical white matter on the rig ht and to lesser extent on the left. Insula may BE less well-defined on the right as compared to left . No evident hemorrhage. Calvarium is intact. Inflammatory change present within the ethmoid air cell s. The orbits are symmetric. IMPRESSION: Findings may represent subacute infarct, consider MRI for better evaluation. Nonspecific White matter low-attenuation.
[2019-08-29 17:13] LABS: Basophils % (A) 1 %; Eosinophils # (A) 0.2 k/uL (0-0.7); Eosinophils % (A) 2 %; HGB 13.9 gm/dL (13.0-17.5); Lymphocytes # (A) 1.2 k/uL (1.0-4.8); Lymphocytes % (A) 17 %; MCH 30.4 pg (25.0-35.0); MCHC 31.6 g/dL (31.0-37.0); MCV 96.2 fL (80.0-100.0); Mean Platelet Volume 6.9; Monocytes # (A) 0.5 k/uL (0-1.0); Monocytes % (A) 7 %; Neutrophils # (A) 5.1 k/uL (1.3-7.7); Neutrophils % (A) 71 %; Platelet Count 274 k/uL (150-450); RBC 4.57 m/uL (4.30-5.90); RDW 14.5 % (11.5-15.5); WBC 7.2 k/uL (3.8-10.6)
[2019-08-29 17:22] LABS: INR 0.9 (<1.2); Prothrombin Time 9.7 sec (9.0-12.0)
[2019-08-29 17:23] LABS: Partial Thromboplastin Time 23.9 sec (22.0-30.0)
[2019-08-29 17:24] LABS: ALT 17 U/L (4-49); AST 27 U/L (17-59); African American GFR (CKD) >90 (>60 ml/min/1.73 sqM); Albumin 3.7 g/dL (3.5-5.0); Alkaline Phosphatase 57 U/L (38-126); Anion Gap 5 mmol/L; Blood Urea Nitrogen 13 mg/dL (9-20); Calcium 9.1 mg/dL (8.4-10.2); Carbon Dioxide 27 mmol/L (22-30); Chloride 106 mmol/L (98-107); Glucose 186 mg/dL (74-99); Non-African American GFR(CKD) >90 (>60 ml/min/1.73 sqM); Potassium 4.4 mmol/L (3.5-5.1); Sodium 138 mmol/L (137-145); Total Bilirubin 0.3 mg/dL (0.2-1.3); Total Protein 6.3 g/dL (6.3-8.2)
--- NOTE | 2019-08-29 17:37 | XR ---
EXAMINATION TYPE: XR chest 2V DATE OF EXAM: 08/29/2019 COMPARISON: 02/08/2017 HISTORY: Altered mental status. Weakness. TECHNIQUE: FINDINGS: There is no heart failure nor confluent pneumonic infiltrate. Heart and mediastinum appear normal. There is no evidence of pleural effusion. Bony thorax is intact. There is old left upper post erior healed rib fracture. IMPRESSION: No active cardiopulmonary disease. Normal heart. No adverse change compared to old exam.
--- NOTE | 2019-08-29 17:45 | CT ---
EXAMINATION TYPE: CODE STROKE: CTA head neck DATE OF EXAM: 08/29/2019 COMPARISON: None HISTORY: cva CT DLP: 367.5 mGycm Automated exposure control for dose reduction was used. CONTRAST: Performed with IV Contrast, patient injected with 65cc mL of Isovue 370. Images were obtained from the aortic arch to the vertex of the brain with IV contrast and 3-D post pr ocessed images. There is normal branching pattern of the great vessels on the aortic arch. There is bilateral arteria l flow in the subclavian arteries. There is arterial flow in the common internal and external carotid arteries bilaterally. There is wide patency of the carotid artery bifurcations. There is bilateral a rterial flow in the vertebral arteries. Right vertebral artery is larger than the left. There is ormel rial flow in the vertebrobasilar artery system. Basilar artery fills entirely from the right side. Th ere is no evidence of carotid or vertebral artery aneurysm or dissection. There is arterial flow in the anterior middle and posterior cerebral arteries. There is no evidence o f intracranial arterial stenosis. There is normal contrast opacification of the venous sinuses. There is no mass effect. There is no sign of aneurysm or neovascularity. The remainder of the exam is unre markable. IMPRESSION: Negative CT angiogram of the neck. Negative CT angiogram of the brain.
[2019-08-29] MEDS: SODIUM CHLORIDE 0.9% 1,000 ML IV SCH (21:32)
[2019-08-29] MEDS ORDERED: ALBUTEROL NEBULIZED 2.5 MG/3 ML INHALATION PRN (21:43)
[2019-08-29] MEDS: MAGNESIUM OXIDE 400 MG TAB PO SCH (22:29)
[2019-08-29] MEDS: QUEtiapine 100 MG TAB PO SCH (22:29)
[2019-08-29] MEDS: ATORVASTATIN 80 MG TAB PO SCH (22:29)
[2019-08-29] MEDS: LORazepam 1 MG TAB PO SCH (22:29)
[2019-08-29] MEDS: ETODOLAC 200 MG CAPSULE PO PRN (22:48)
[2019-08-30] MEDS: SODIUM CHLORIDE 0.9% 1,000 ML IV SCH ×2 (06:48→18:30)
[2019-08-30 07:47] LABS: Cholesterol 127 mg/dL (<200); HDL Cholesterol 56 mg/dL (40-60); LDL Cholesterol,Calculated 59 mg/dL (0-99); Triglycerides 62 mg/dL (<150)
[2019-08-30] MEDS: IPRATROPIUM 0.5 MG/2.5 ML NEBU INHALATION SCH ×4 (08:00→20:06)
[2019-08-30] MEDS: SYMBICORT 80-4.5 MCG INHALER INHALATION SCH ×3 (08:02→20:06)
--- NOTE | 2019-08-30 11:29 | CONS ---
CONSULTATION DATE OF THIS DICTATION: 08/30/2019 HISTORY PRESENT ILLNESS: Thank you for allowing me to evaluate Cristino Johansen who is a 54-year-old right- handed white male who presented to [facility] on 08/29/2019 for evaluation of possible stroke. The patient states that the night before presentation, he was at his baseline. 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 He also states that he was having difficulty buttoning his shirt and tying his shoes with his left hand, but despite this, got ready for work and drove it in without incident. When he was at work, he had difficulty putting his mask on with his left hand and as a result, presented to the hospital for further evaluation and treatment. 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 The right side was asymptomatic. With the symptoms, there was no associated vertigo, diplopia, dysarthria, difficulty chewing/swallowing. The patient denies previous history of stroke or seizure. He was not taking aspirin for other anti- platelet/anticoagulant medication at time of this event. He was evaluated by teleneurology in the emergency room and due to rapid resolution of symptoms, was not felt to be a tPA/intervention candidate. At this time, the patient states he "feels good." He states the left upper extremity weakness and numbness have improved but not completely resolved. In fact, the patient states he was able to button his pants today which he could not do yesterday. ALLERGIES: No known drug allergies. HOME MEDICATIONS: Cataflam, magnesium, albuterol, Seroquel, Ativan, and Trelegy Ellipta. PAST MEDICAL HISTORY: Tobacco abuse, COPD, and insomnia. PAST SURGICAL HISTORY: Bilateral rotator cuff repairs, appendectomy, tonsillectomy, 3 hernia surgeries, and right elbow surgery. SOCIAL HISTORY: The patient smokes 8 cigarettes per day and has smoked since he was 14 years of age, at most, he smoked 1 pack per day. He reports occasional alcohol consumption. He smokes marijuana occasionally, but denied other illicit drug use. He is without children and lives in a house with his . 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 FAMILY HISTORY: Patient's parents are both alive. Father has hypertension, diabetes mellitus. There is no family history of stroke at young age, epilepsy or other neurologic disease. REVIEW OF SYSTEMS: Fourteen systems are reviewed and no additional points identified. The review of systems documented in the history and physical. PHYSICAL EXAM: Upon my arrival to the patient's room, he was lying in bed, receptive to the examiner. Affect is normal, he is an accurate historian of thin build and appears of stated age. VITAL SIGNS: Blood pressure is 103/65 with a pulse of 80, respiratory rate 16, temperature 98.4, weight is 70 kg on a 6 foot 1 inch frame. SKIN/EXTREMITIES: Normal. HEAD AND NECK: No tenderness or signs of trauma. Neck is supple without meningeal signs. Arteries and arteries are nontender and without bruits. HEART: Regular rhythm higher cortical function. MENTAL STATUS: The patient was alert, oriented to time, place, and person. He was able to name, repeat and read. There was no right, left disorientation, finger- nose extinction to double simultaneous stimulation or dysarthria. Cranial nerves 2- 12 pupils are equal and reactive to light symmetrically. No afferent pupillary defect. Visual ann are intact. There is no ptosis, extraocular movements are full, No nystagmus. Pinprick light touch, intact in all 3 divisions. Motor 5 intact. There is a left upper motor neuron facial asymmetry. Acuity intact to finger rub. Palate jasmeet in the midline. Trapezius strength intact. Tongue protruded midline without fasciculation or atrophy. Motor examination, there is a left upper extremity pronator drift. There is normal bulk and tone oral point muscles with no involuntary movements noted. Strength is 5/5 involving the left upper and bilateral lower extremities. The left upper extremity strength is listed on a 0-5 MRC scale. The deltoid 5, biceps 5, triceps 5, wrist extensors 4+, finger extensors 4+, interossei 4. Sensory patient reports diminution to pinprick and light touch involving the left upper extremity as compared to the right lower extremities were symmetric. Reflexes right side this 1st biceps 2+ 2, brachioradialis 2, 1, triceps 2+ 2, patella 1, 1, ankle 1, 1. Plantar responses flexor bilaterally. Saenz's is absent. Coordination [id number], heel- to-rubio movements are intact. Rapid alternating movements are symmetric with finger and foot tapping. DIAGNOSTIC TESTING: Patient had a CT scan of brain completed without contrast in emergency room, which demonstrated asymmetric sulcal effacement in the right temporal parietal region with subtle hypodensity in the left MCA distribution. An MRI of the brain, which diffusion- weighted images was completed with radiology interpretation pending at the time of this dictation, although to my review demonstrates a right MCA infarct. CTA of the head/neck vessels was read as unrevealing and chest x-ray demonstrated no acute pathology. EKG and cardiac telemetry have revealed normal sinus rhythm, although nurses nursing staff stated the patient has also had bradycardia. LAB WORK: Demonstrates a white blood count of 7.2 with a hemoglobin of 13.9, platelet count 274. Sodium 138, potassium 4.4, BUN 13 with creatinine 0.84. INR 0.9. Cholesterol 127 with LDL of 59, HDL 56, calcium 9.1, ALT 17, AST 27, troponin negative. IMPRESSION: 1. Acute right MCA infarct with left upper extremity weakness/numbness noted upon awakening yesterday morning. The etiology may be secondary to cardioembolic phenomenon as a CTA of the head/neck vessels was unrevealing. Risk factors for stroke are limited to tobacco abuse and male sex. The patient was not on aspirin or other anti-platelet/anticoagulant medication at the time of this event. 2. Medical history including COPD and insomnia. RECOMMENDATION: 1. I discussed my impression and plan with the patient and he expressed understanding. Case was also discussed with nursing staff. 2. MRI of the brain confirmed the stroke described above, CTA of the head/neck vessels was unrevealing and failed to demonstrate a source for this event. 3. Transesophageal echocardiogram and the patient is maintained on telemetry. If the CAROLYN is unrevealing and no arrhythmias are noted, would suggest prolonged cardiac monitoring after discharge. 4. Hypercoagulable workup and will obtain toxicology screen. 5. Agree with physical, occupational and speech therapy evaluation and treatment. 6. Avoid hypotension/hyperglycemia. 7. Risk factor modification, which strongly recommend the patient quit smoking. Current cholesterol is 127 with an LDL of 59. 8. Agree with aspirin for now and the patient has been placed on statin therapy. 9. Will follow with you. FRANCIS / HINAN: [id number] / MTDD
[2019-08-30] MEDS: ASPIRIN 325 MG TAB PO SCH (12:29)
--- NOTE | 2019-08-30 12:32 | MR ---
EXAMINATION TYPE: MR brain wo con DATE OF EXAM: 08/30/2019 COMPARISON: NONE HISTORY: Left sided weakness, R/O CVA TECHNIQUE: T1-weighted sagittal, T2, FLAIR, and diffusion axial, and T2 coronal coronal views of the brain are submitted. FINDINGS: Diffusion imaging demonstrates abnormal signal throughout the right parietal lobe in a pattern compat ible with an acute area of ischemia. No midline shift or mass effect. Generalized degenerative change s seen and there is periventricular low abnormal signal most typical remote microvascular ischemia. Craniocervical junction maintained. Sella turcica has a normal appearance. Changes of chronic sinusit is. No cerebellopontine angle mass. IMPRESSION: 1. Findings compatible with acute ischemia in the distribution of the right parietal lobe in the MCA distribution. Report called to the patient's nurse. 2. Degenerative and nonspecific white matter changes most typical remote ischemia.
--- NOTE | 2019-08-30 13:32 | P.CRDCN ---
History of Present Illness Consult date: 08/30/19 Requesting physician: Ricky Carey Reason for Consult (text): CVA Chief complaint: left sided numbness and weakness History of present illness: This is a pleasant 54-year-old gentleman with a past history of smoking for about 40 years, recently began cutting back, occasional drinker on the weekends, insomnia and COPD. Presented to the emergency department with complaints of left sided numbness and weakness which she noticed mostly in his left hand. He was having difficulties buttoning his shirt and tying his shoes and continued to have difficulty while at work and subsequently presented to the hospital for further evaluation. He has no history of hypertension, hyperlipidemia, di abetes, or arrhythmia. CT of the brain on admission showed findings which may represent subacute infarct, nonspecific white matter low attenuation, consider MRI for better evaluation. Chest x-ray admission showed no active cardiopulmonary disease, normal heart, no adverse change compared to old exam. CT angiogram of the head and neck were negative. MRI of the brain show findings compatible with acute ischemia in the distribution of the right parietal lobe in the MCA distribution, degenerative and nonspecific white matter changes most typically remote ischemia. Vital signs of in stable patient has been sinus rhythm on telemetry with no evidence of significant hypertension. Labs show nor mal CBC, normal BUN, creatinine and electrolytes. Troponin was negative 1, liver enzymes are normal. Lipids show cholesterol 127, LDL 59, HDL 56 and triglycerides of 62. He's been initiated on aspirin 325 mg by mouth daily, and atorvastatin 80 mg by mouth daily at bedtime. Home medications include Seroquel, Ativan, trelegy ellipta, Proair, magnesium, and cataflam. Patient denies any issues with chest discomfort, palpitations, dizziness, lightheadedness, syncope, near syncope, significant shortness of breath, orthopnea or PND. Past Medical History Past Medical History: Asthma, Musculoskeletal Disorder Additional Past Medical History / Comment(s): LT SHOULDER ROTATOR CUFF TEAR. VARICOSE VEINS. History of Any Multi-Drug Resistant Organisms: None Reported Past Surgical History: Appendectomy, Hernia Repair, Orthopedic Surgery, Tonsillectomy Additional Past Surgical History / Comment(s): BLUE shoulder surgery. HERNIA X2. SINUS SURGERY 2 YEARS AGO Past Anesthesia/Blood Transfusion Reactions: No Reported Reaction Additional Past Anesthesia/Blood Transfusion Reaction / Comment(s): States Fathe r during surgery but was not sure what happened, HAD BAD HEART. Smoking Status: Current every day smoker - Past Family History Mother Family Medical History: No Reported History Father Family Medical History: Coronary Artery Disease (CAD), Diabetes Mellitus Medications and Allergies Home Medications Medication Instructions Recorded Confirmed Type Albuterol Sulfate [Proair Hfa] 2 puff INHALATION RT-Q6H PRN 06/06/16 08/29/19 History Diclofenac Potassium [Cataflam] 50 mg PO BID PRN 08/29/19 08/29/19 History Fluticasone/Umeclidin/Vilanter 1 puff INHALATION RT-DAILY 08/29/19 08/29/19 History [Trelegy Ellipta 100-62.5-25] LORazepam [Ativan] 1 mg PO HS 08/29/19 08/29/19 History Magnesium Oxide 400 mg PO HS 08/29/19 08/29/19 History QUEtiapine [SEROquel] 100 mg PO HS 08/29/19 08/29/19 History Allergies Allergy/AdvReac Type Severity Reaction Status Date / Time No Known Allergies Allergy Verified 08/29/19 16:40 Physical Exam Vitals: Vital Signs Temp Pulse Pulse Pulse Resp BP BP 08/30/19 13:14 64 08/30/19 13:02 60 08/30/19 12:00 98.2 F 64 16 104/59 08/30/19 08:08 80 08/30/19 08:00 98.4 F 84 62 16 103/65 08/30/19 04:00 97.6 F 58 L 18 101/51 08/30/19 00:00 97.2 F L 60 18 102/57 08/29/19 20:00 98.4 F 53 L 53 L 18 129/70 08/29/19 19:59 58 L 16 129/90 08/29/19 19:15 53 L 16 119/81 08/29/19 18:59 51 L 18 128/78 08/29/19 18:00 54 L 16 135/85 08/29/19 17:29 57 L 16 125/84 08/29/19 16:59 56 L 16 130/80 08/29/19 16:44 63 15 123/80 08/29/19 16:29 58 L 16 116/86 08/29/19 16:14 98.4 F 68 18 149/94 08/29/19 15:35 98.4 F 68 18 149/94 Pulse Ox 08/30/19 13:14 08/30/19 13:02 08/30/19 12:00 98 08/30/19 08:08 08/30/19 08:00 96 08/30/19 04:00 96 08/30/19 00:00 94 L 08/29/19 20:00 97 08/29/19 19:59 93 L 08/29/19 19:15 96 08/29/19 18:59 96 08/29/19 18:00 97 08/29/19 17:29 97 08/29/19 16:59 96 08/29/19 16:44 97 08/29/19 16:29 96 08/29/19 16:14 97 08/29/19 15:35 97 Intake and Output 08/29/19 08/30/19 08/30/19 22:59 06:59 14:59 Intake Total 0 240 Balance 0 240 Intake: Oral 0 240 Other: Voiding Method Toilet Toilet Toilet # Voids 0 1 1 Weight 78.018 kg 70 kg PHYSICAL EXAMINATION: HEENT: Head is atraumatic, normocephalic. Pupils equal, round. Neck is supple. There is no elevated jugular venous pressure. No carotid bruit. HEART EXAMINATION: Heart sounds regular, S1 and S2 normal. No murmur or gallop heard. CHEST EXAMINATION: Lungs reveal diminished air entry bilaterally. No chest wall tenderness is noted on palpation or with deep breathing. ABDOMEN: Soft, nontender. Bowel sounds are heard. No organomegaly noted. EXTREMITIES: 2+ peripheral pulses with no evidence of peripheral edema and no calf tenderness noted. NEUROLOGIC patient is awake, alert and oriented x3. Minimal weakness noted with left hand grasp. . Results 08/29/19 17:02 08/29/19 17:02 Cardiac Enzymes 08/29/19 08/29/19 Range/Units 17:02 17:02 AST 27 (17-59) U/L Troponin I <0.012 (0.000-0.034) ng/mL Coagulation 08/29/19 Range/Units 17:02 PT 9.7 (9.0-12.0) sec APTT 23.9 (22.0-30.0) sec Lipids 08/30/19 Range/Units 06:35 Triglycerides 62 (<150) mg/dL Cholesterol 127 (<200) mg/dL HDL Cholesterol 56 (40-60) mg/dL CBC 08/29/19 Range/Units 17:02 WBC 7.2 (3.8-10.6) k/uL RBC 4.57 (4.30-5.90) m/uL Hgb 13.9 (13.0-17.5) gm/dL Hct 44.0 (39.0-53.0) % Plt Count 274 (150-450) k/uL Comprehensive Metabolic Panel 08/29/19 Range/Units 17:02 Sodium 138 (137-145) mmol/L Potassium 4.4 (3.5-5.1) mmol/L Chloride 106 (98-107) mmol/L Carbon Dioxide 27 (22-30) mmol/L BUN 13 (9-20) mg/dL Creatinine 0.84 (0.66-1.25) mg/dL Glucose 186 H (74-99) mg/dL Calcium 9.1 (8.4-10.2) mg/dL AST 27 (17-59) U/L ALT 17 (4-49) U/L Alkaline Phosphatase 57 (38-126) U/L Total Protein 6.3 (6.3-8.2) g/dL Albumin 3.7 (3.5-5.0) g/dL Current Medications Generic Name Dose Route Start Last Admin Trade Name Freq PRN Reason Stop Dose Admin Albuterol Sulfate 2.5 mg 08/29/19 21:43 Ventolin Nebulized INHALATION RT-Q6H PRN Shortness Of Breath Aspirin 325 mg 08/30/19 12:00 08/30/19 12:29 Aspirin PO 325 mg DAILY ANAID Administration Atorvastatin Calcium 80 mg 08/29/19 21:45 08/29/19 22:29 Lipitor PO 80 mg HS ANAID Administration Budesonide/Formoterol Fumarate 2 puff 08/30/19 08:00 08/30/19 08:52 Symbicort 80-4.5 Mcg Inhaler INHALATION Not Given RT-BID ANAID Etodolac 200 mg 08/29/19 21:43 08/29/19 22:48 Lodine PO 200 mg BID PRN Administration JOINT PAIN Sodium Chloride 1,000 mls @ 100 mls/hr 08/29/19 18:15 08/30/19 06:48 Saline 0.9% IV 100 mls/hr .Q10H ANAID Administration Ipratropium [place] 0.5 mg 08/30/19 08:00 08/30/19 13:02 Atrovent Nebulized INHALATION 0.5 mg RT-QID ANAID Administration Lorazepam 1 mg 08/29/19 21:45 08/29/19 22:29 Ativan PO 1 mg HS ANAID Administration Magnesium Oxide 400 mg 08/29/19 21:45 08/29/19 22:29 Mag-Ox PO 400 mg HS ANAID Administration Quetiapine Fumarate 100 mg 08/29/19 21:45 08/29/19 22:29 Seroquel PO 100 mg HS ANAID Administration Intake and Output 08/29/19 08/30/19 08/30/19 22:59 06:59 14:59 Intake Total 0 240 Balance 0 240 Intake: Oral 0 240 Other: Voiding Method Toilet Toilet Toilet # Voids 0 1 1 Weight 78.018 kg 70 kg 08/29/19 17:02 08/29/19 17:02 Assessment and Plan Assessment: #1 right parietal lobe CVA in the MCA distribution #2 nicotine dependence #3 COPD Plan: From cardiology's perspective, we will obtain a 2-D echo with Doppler. We will also plan to do a CAROLYN in the morning to assess for cardiac source of emboli. Further recommendations to follow. GANG RIDER note has been reviewed, I agree with a documented findings and plan of care. Patient was seen and examined.
[2019-08-30] MEDS: ETODOLAC 200 MG CAPSULE PO PRN (20:35)
[2019-08-30 21:16] LABS: Cardiolipin Ab IgG Interp NEGATIVE (NEGATIVE); Cardiolipin Ab IgM Interp NEGATIVE (NEGATIVE); Cardiolipin IgA Antibody 2.8 U/mL
[2019-08-30] MEDS: QUEtiapine 100 MG TAB PO SCH (21:52)
[2019-08-30] MEDS: ATORVASTATIN 80 MG TAB PO SCH (21:52)
[2019-08-30] MEDS: MAGNESIUM OXIDE 400 MG TAB PO SCH (21:52)
[2019-08-30] MEDS: LORazepam 1 MG TAB PO SCH (21:52)
--- NOTE | 2019-08-30 22:59 | P.HPIM ---
History of Present Illness H&P Date: 08/30/19 Chief Complaint: L arm weakness Cristino Johansen is a 54 yo M with hx tobacco abuse, anxiety who presented to the ED after experiencing L sided weakness. He states he woke up and noticed he had less strength on the L as well as difficultly buttoning his shirt and tying his shoes. He did drive to work but then when his symptoms continued he came in to the hospital. He did experience some numbness in his LUE but denies any facial numbness/droop or change in his speech. In the ED his vitals and labs were stable, brain CT unremarkable. He was evaluated by neurology and felt not to be a candidate for TPA. Pt was given ASA and started on lipitor. Review of Systems All systems: negative Constitutional: Denies chills, Denies fever Eyes: denies blurred vision, denies pain Ears, nose, mouth and throat: Denies headache, Denies sore throat Cardiovascular: Denies chest pain, Denies shortness of breath Respiratory: Denies cough Gastrointestinal: Denies abdominal pain, Denies diarrhea, Denies nausea, Denies vomiting Musculoskeletal: Reports arm numbness/tingling, Reports muscle weakness, Denies myalgias Integumentary: Denies pruritus, Denies rash Neurological: Denies numbness, Denies weakness Psychiatric: Denies anxiety, Denies depression Endocrine: Denies fatigue, Denies weight change Past Medical History Past Medical History: Asthma, Musculoskeletal Disorder Additional Past Medical History / Comment(s): LT SHOULDER ROTATOR CUFF TEAR. VARICOSE VEINS. History of Any Multi-Drug Resistant Organisms: None Reported Past Surgical History: Appendectomy, Hernia Repair, Orthopedic Surgery, Tonsillectomy Additional Past Surgical History / Comment(s): BLUE shoulder surgery. HERNIA X2. SINUS SURGERY 2 YEARS AGO Past Anesthesia/Blood Transfusion Reactions: No Reported Reaction Additional Past Anesthesia/Blood Transfusion Reaction / Comment(s): States Father during surgery but was not sure what happened, HAD BAD HEART. Smoking Status: Current every day smoker - Past Family History Mother Family Medical History: No Reported History Father Family Medical History: Coronary Artery Disease (CAD), Diabetes Mellitus Medications and Allergies Home Medications Medication Instructions Recorded Confirmed Type Albuterol Sulfate [Proair Hfa] 2 puff INHALATION RT-Q6H PRN 06/06/16 08/29/19 History Diclofenac Potassium [Cataflam] 50 mg PO BID PRN 08/29/19 08/29/19 History Fluticasone/Umeclidin/Vilanter 1 puff INHALATION RT-DAILY 08/29/19 08/29/19 History [Trelegy Ellipta 100-62.5-25] LORazepam [Ativan] 1 mg PO HS 08/29/19 08/29/19 History Magnesium Oxide 400 mg PO HS 08/29/19 08/29/19 History QUEtiapine [SEROquel] 100 mg PO HS 08/29/19 08/29/19 History Allergies Allergy/AdvReac Type Severity Reaction Status Date / Time No Known Allergies Allergy Verified 08/29/19 16:40 Physical Exam Vitals: Vital Signs Temp Pulse Pulse Pulse Resp BP BP 08/30/19 13:14 64 08/30/19 13:02 60 08/30/19 12:00 98.2 F 64 16 104/59 08/30/19 08:08 80 08/30/19 08:00 98.4 F 84 62 16 103/65 08/30/19 04:00 97.6 F 58 L 18 101/51 08/30/19 00:00 97.2 F L 60 18 102/57 08/29/19 20:00 98.4 F 53 L 53 L 18 129/70 08/29/19 19:59 58 L 16 129/90 08/29/19 19:15 53 L 16 119/81 08/29/19 18:59 51 L 18 128/78 08/29/19 18:00 54 L 16 135/85 08/29/19 17:29 57 L 16 125/84 08/29/19 16:59 56 L 16 130/80 08/29/19 16:44 63 15 123/80 08/29/19 16:29 58 L 16 116/86 08/29/19 16:14 98.4 F 68 18 149/94 08/29/19 15:35 98.4 F 68 18 149/94 Pulse Ox 08/30/19 13:14 08/30/19 13:02 08/30/19 12:00 98 08/30/19 08:08 08/30/19 08:00 96 08/30/19 04:00 96 08/30/19 00:00 94 L 08/29/19 20:00 97 08/29/19 19:59 93 L 08/29/19 19:15 96 08/29/19 18:59 96 08/29/19 18:00 97 08/29/19 17:29 97 08/29/19 16:59 96 08/29/19 16:44 97 08/29/19 16:29 96 08/29/19 16:14 97 08/29/19 15:35 97 Intake and Output 08/29/19 08/30/19 08/30/19 22:59 06:59 14:59 Intake Total 0 240 Balance 0 240 Intake: Oral 0 240 Other: Voiding Method Toilet Toilet Toilet # Voids 0 1 1 Weight 78.018 kg 70 kg General: well nourished, well developed, NAD. Vitals reviewed Eyes: PERRL, EOMI, conjunctiva normal HENT: normocephalic, mucus membranes moist Neck: supple, no JVD Lungs: normal respiratory effort, no wheezes or rales CV: Regular rate and rhythm, no murmur. Peripheral pulses 2+ Abdomen: soft, nondistended, no organomegaly Lymph: no cervical or axillary LAD Skin: warm and dry. Neuro: A&Ox3, normal mood and affect. LUE str 4/5, RUE str 5/5 Results CBC & Chem 7: 08/29/19 17:02 08/29/19 17:02 Labs: Abnormal Lab Results - Last 24 Hours (Table) 08/29/19 08/29/19 Range/Units 15:38 17:02 Glucose 186 H (74-99) mg/dL POC Glucose (mg/dL) 209 H (75-99) mg/dL Thrombosis Risk Factor Assmnt - Choose All That Apply Each Factor Represents 1 point: Age 41-60 years Thrombosis Risk Factor Assessment Total Risk Factor Score: 1 Thrombosis Risk Factor Assessment Level: Low Risk Assessment and Plan (1) Cerebrovascular accident (CVA) Current Visit: Yes Status: Acute Code(s): I63.9 - CEREBRAL INFARCTION, UNSPECIFIED SNOMED Code(s): 118970264 (2) Anxiety Current Visit: Yes Status: Acute Code(s): F41.9 - ANXIETY DISORDER, UN SPECIFIED SNOMED Code(s): 74124133 (3) Left arm weakness Current Visit: Yes Status: Acute Code(s): R29.898 - OTH SYMPTOMS AND SIGNS INVOLVING THE MUSCULOSKELETAL SYSTEM SNOMED Code(s): 115785193 Plan: 1. R MCA stroke. MRI performed showing acute CVA. Neurology and cardiology consulted. Start ASA and lipitor. Plan for CAROLYN per cardiology. Encourage tobacco cessation 2. Anxiety. Continue seroquel and ativan
[2019-08-31 01:16] LABS: Urine Alcohol Negative (Negative); Urine Barbiturate Negative (Negative); Urine Cocaine Negative (Negative); Urine Methadone Negative (Negative); Urine Opiates Negative (Negative); Urine Phencyclidine Negative (Negative)
[2019-08-31] MEDS: SODIUM CHLORIDE 0.9% 1,000 ML IV SCH (06:36)
[2019-08-31] MEDS: ASPIRIN 325 MG TAB PO SCH (08:15)
--- NOTE | 2019-08-31 08:40 | ECHOF ---
Referral Reason:CVA MEASUREMENTS -------- HEIGHT: 185.4 cm WEIGHT: 69.9 kg BP: 104/59 RVIDd: 2.8 cm (< 3.3) IVSd: 1.0 cm (0.6 - 1.1) LVIDd: 4.9 cm (3.9 - 5.3) LVPWd: 1.0 cm (0.6 - 1.1) IVSs: 1.4 cm LVIDs: 3.8 cm LVPWs: 1.6 cm LA Diam: 3.3 cm (2.7 - 3.8) LAESV Index (A-L): 24.90 ml/m Ao Diam: 3.5 cm (2.0 - 3.7) AV Cusp: 2.3 cm (1.5 - 2.6) MV EXCURSION: 16.638 mm (> 18.000) MV EF SLOPE: 97 mm/s (70 - 150) EPSS: 0.6 cm MV E Darrion: 0.86 m/s MV DecT: 222 ms MV A Darrion: 0.68 m/s MV E/A Ratio: 1.27 RAP: 5.00 mmHg RVSP: 22.55 mmHg FINDINGS -------- Resting bradycardia (HR<60bpm). This was a technically good study. The left ventricular size is normal. Left ventricular wall thickness is normal. Overall left vent ricular systolic function is normal with, an EF between 55 - 60 %. The right ventricle is normal in size. Normal LA size by volume 22+/-6 ml/m2. The right atrium is normal in size. Aneurysmal Interatrial septum. The aortic valve is trileaflet and appears structurally normal. The mitral valve is normal. Mild tricuspid regurgitation present. Right ventricular systolic pressure is normal at < 35 mmHg. Trace/mild (physiologic) pulmonic regurgitation. The aortic root size is normal. Normal inferior vena cava with normal inspiratory collapse consistent with estimated right atrial pre ssure of 5 mmHg. There is no pericardial effusion. CONCLUSIONS -------- 1. Resting bradycardia (HR<60bpm). 2. This was a technically good study. 3. The left ventricular size is normal. 4. Left ventricular wall thickness is normal. 5. Overall left ventricular systolic function is normal with, an EF between 55 - 60 %. 6. The right ventricle is normal in size. 7. Normal LA size by volume 22+/-6 ml/m2. 8. The right atrium is normal in size. 9. Aneurysmal Interatrial septum. 10. The aortic valve is trileaflet and appears structurally normal. 11. The mitral valve is normal. 12. Mild tricuspid regurgitation present. 13. Right ventricular systolic pressure is normal at < 35 mmHg. 14. Trace/mild (physiologic) pulmonic regurgitation. 15. The aortic root size is normal. 16. Normal inferior vena cava with normal inspiratory collapse consistent with estimated right atrial pressure of 5 mmHg. 17. There is no pericardial effusion. ASSISTANT DEPARTMENT MANAGER: Jennifer Saldana RDCS
[2019-08-31] MEDS: SYMBICORT 80-4.5 MCG INHALER INHALATION SCH ×2 (09:29→20:05)
[2019-08-31] MEDS: IPRATROPIUM 0.5 MG/2.5 ML NEBU INHALATION SCH ×4 (09:29→20:05)
[2019-08-31] MEDS ORDERED: fentaNYL (PF) 50 MCG/ML 2 ML AMP ONE (10:02)
[2019-08-31] MEDS ORDERED: SODIUM CHLORIDE 0.9% 1,000 ML IV ONE (10:25)
[2019-08-31] MEDS: BENZOCAINE SPRAY 1 CAN TOPICAL ONE ×2 (10:38→11:03)
[2019-08-31] MEDS: fentaNYL (PF) 50 MCG/ML 2 ML AMP IVP ONE ×2 (11:03→11:05)
[2019-08-31] MEDS: MIDAZOLAM 2 MG/2 ML VIAL IVP ONE ×2 (11:03→11:05)
[2019-08-31] MEDS ORDERED: fentaNYL (PF) 50 MCG/ML 2 ML AMP IVP ONE (11:04)
[2019-08-31] MEDS ORDERED: MIDAZOLAM 2 MG/2 ML VIAL IVP ONE (11:04)
--- NOTE | 2019-08-31 11:20 | P.PN ---
Subjective Progress Note Date: 08/31/19 Cristino Johansen is a 54 yo M with hx tobacco abuse, anxiety who presented to the ED after experiencing L sided weakness. He states he woke up and noticed he had less strength on the L as well as difficultly buttoning his shirt and tying his shoes. He did drive to work but then when his symptoms continued he came in to the hospital. He did experience some numbness in his LUE but denies any facial numbness/droop or change in his speech. In the ED his vitals and labs were stable, brain CT unremarkable. He was evaluated by neurology and felt not to be a candidate for TPA. Pt was given ASA and started on lipitor. 08/31/2019 maintained on aspirin and Lipitor .MRI a reporting acute right MCA CVA. Echo reporting normal LV function, EF 55-60%, no thrombus. NPO. CAROLYN pending. Significant clinical improvement with left upper extremity weakness nearly resolved. Denies chest pain, palpitations or shortness of breath. Bradycardia, with borderline hypotension, systolic blood pressures in the 80s to 110s. Objective - Vital Signs Vital signs: Vital Signs Temp 98.3 F 08/31/19 08:00 Pulse 58 L 08/31/19 08:00 Resp 16 08/31/19 08:00 BP 117/69 08/31/19 08:00 Pulse Ox 97 08/31/19 08:00 Intake & Output 08/30/19 08/31/19 08/31/19 18:59 06:59 18:59 Intake Total 480 550 Balance 480 550 Weight 68.5 kg Intake: IV 550 Sodium Chloride 0.9% 1, 550 000 ml @ 100 mls/hr IV . Q10H ANAID Rx#:[id number] Oral 480 Other: Voiding Method Toilet Toilet Toilet # Voids 2 1 - Exam General: well nourished, well developed, NAD. Vitals reviewed Eyes: PERRL, EOMI, conjunctiva normal HENT: normocephalic, mucus membranes moist Neck: supple, no JVD Lungs: normal respiratory effort, no wheezes or rales CV: Regular rate and rhythm, no murmur. Peripheral pulses 2+ Abdomen: soft, nondistended, no organomegaly Lymph: no cervical or axillary LAD Skin: warm and dry. Neuro: A&Ox3, normal mood and affect. LUE str 4/5; mildly weaker triceps, symmetrical flexion, RUE str 5/5 - Labs CBC & Chem 7: 08/29/19 17:02 08/29/19 17:02 Assessment and Plan Assessment: (1) Cerebrovascular accident (CVA), acute right MCA Current Visit: Yes Status: Acute Code(s): I63.9 - CEREBRAL INFARCTION, UNSPECIFIED SNOMED Code(s): 025858914 (2) Anxiety Current Visit: Yes Status: Acute Code(s): F41.9 - ANXIETY DISORDER, UNSPECIFIED SNOMED Code(s): 91385618 (3) Left arm weakness Current Visit: Yes Status: Acute Code(s): R29.898 - OTH SYMPTOMS AND SIGNS INVOLVING THE MUSCULOSKELETAL SYSTEM SNOMED Code(s): 731309188 (4) anxiety (5) nicotine dependence (6) COPD Plan: Continue on current medication regime ,monitoring and symptomatic treatment. Neuro workup in progress, etiology unclear, CAROLYN pending. Maintained on aspirin and statin. Follow closely with both cardiology and neurology. Prognosis guarded given multiple complex medical issues. The impression and plan of care has been dictated as directed. : I performed a history and examination of this patient, discussed the same with the dictator. I agree with the dictator's note ,documented as a scribe. Any additional findings or plans will be noted.
--- NOTE | 2019-08-31 11:56 | ECHOT ---
TRANSESOPHAGEAL ECHOCARDIOGRAM INDICATION: Evaluation of atrial source for thrombus, PROCEDURE: After explaining the procedure to the patient, its risks and the complications, his blood pressure, heart rate, O2 saturation was monitored. He received 2 mg intravenous Versed, 50 mcg intravenous fentanyl. The probe was introduced into the esophagus without difficulty. Images were obtained. Following that, the probe was removed. There was no immediate complication. FINDINGS: Left atrial size is normal. Left atrial appendage is normal. Left ventricular size and systolic function normal. The interatrial septum is highly mobile and contrast bubble study revealed a small amount of oslrj-rf-nhjo shunting with Valsalva maneuver. The mitral valve, aortic and tricuspid valve is normal, descending thoracic aorta appears to be normal. No pericardial effusion was noted. Doppler pulse wave and color Doppler obtained, revealed mild mitral and tricuspid regurgitation. There was no shunting by color Doppler study. CONCLUSION: 1. Normal left ventricular size and systolic function. 2. Normal appearance left atrial appendage. 3. Highly mobile left interatrial septum with zvtjk-vp-aegp shunting with Valsalva maneuver of minimal severity. 4. Mild mitral and tricuspid regurgitation. 5. Normal appearance of the descending thoracic aorta. MMODL / IJN: [id number] /
--- NOTE | 2019-08-31 11:59 | PN ---
PROGRESS NOTE Mr. Johansen is a 54-year-old male who presented with evidence of CVA with left upper extremity weakness and numbness. He is feeling better today. His breathing is better. He is denying any chest pain. He denies any dizziness, palpitation. He denies any nausea. He underwent a transthoracic echocardiogram yesterday that revealed a preserved ventricular size and systolic function with aneurysmal interatrial septum, but no shunting noted. He continues to be at this time on aspirin once a day, Lipitor 80 mg daily. PHYSICAL EXAMINATION: Blood pressure 117/69 with a heart rate in the 50s. LUNGS: Clear. HEART: Regular rate and rhythm, S1, S2. No S3. No rub. ABDOMEN: Soft, nontender. EXTREMITIES: No edema. He underwent transesophageal echocardiogram that revealed a highly mobile interatrial septum with nlpaj-ed-[id number] shunting through a small PFO of small severity noted by contrast bubble study not on color Doppler. IMPRESSION: 1. CVA with a patent foramina ovale with jngci-kl-qnad shunting. The amount of shunting is small. Patient prior to admission was not on aspirin. 2. Prior history of smoking. RECOMMENDATION: From the cardiac standpoint, will continue present therapy, follow him closely as an outpatient to see if there is any indication for closure device. The importance of smoking cessation was discussed with the patient. MMODL / IJN: [id number] /
[2019-08-31 15:06] LABS: APTT 46 Sec(s) (<43); APTT 1:1 Mix 37 Sec(s) (<43); Dilute Russell Viper Venom 38 Sec(s) (<44)
--- NOTE | 2019-08-31 15:40 | US ---
EXAMINATION TYPE: US venous doppler duplex LE BI DATE OF EXAM: 08/31/2019 3:30 PM COMPARISON: NONE CLINICAL HISTORY: stroke with PFO, r/o DVT. SIDE PERFORMED: stroke with PFO, varicose veins TECHNIQUE: The lower extremity deep venous system is examined utilizing real time linear array sonog elissa with graded compression, doppler sonography and color-flow sonography. VESSELS IMAGED: External Iliac Vein (EIV) Common Femoral Vein Deep Femoral Vein Greater Saphenous Vein * Femoral Vein Popliteal Vein Small Saphenous Vein * Proximal Calf Veins (* superficial vessels) Right Leg: No evidence of DVT Left Leg: No evidence of DVT IMPRESSION: 1. No diagnostic evidence of DVT as visualized
--- NOTE | 2019-08-31 17:41 | PN ---
PROGRESS NOTE The patient states his symptoms have significantly improved and the left upper extremity function and sensation are near baseline. He has had no new symptoms since admission. He is anxious to go home. CURRENT MEDICATIONS: Albuterol, aspirin 325 mg daily, Lipitor 80 mg daily, Symbicort, Lodine, Atrovent, Mag- Ox, Seroquel and Ativan q.h.s. PHYSICAL EXAM: The patient is lying comfortably in bed, receptive to the examiner. He is an accurate historian. Affect is normal and speech is fluent. VITAL SIGNS: Blood pressure is 89/52 with pulse of 51, respiratory rate 17, temperature is 97.9. The patient is alert, oriented to time, place, and person. There was no aphasia or dysarthria. CRANIAL NERVES 2-12 are intact except for slight delay of left shoulder shrug. Motor examination: There is no pronator drift at this time. There is normal bulk and tone noted in all major muscle groups with no involuntary movements noted. Strength is 5 out of 5 throughout. Sensory: Patient reports no reduction in sensation on the left upper extremity. Lower extremities were also symmetric. Plantar responses flexor bilaterally. Saenz's is absent. Coordination: Mcvulz-aq-tgwc, iidy-cv-uwkn movements are intact. Rapid movements are symmetric with finger and foot tapping. DIAGNOSTIC TESTING: Tox screen was negative. Anticardiolipin antibodies negative. Transesophageal echocardiogram completed this morning demonstrated normal left ventricular size and systolic function with normal appearance to the left atrial appendage and highly mobile left intra-atrial septum with pgwzc-ek-oqnf shunting with Valsalva maneuver "of minimal severity." Cardiology has recommended for the patient to follow up with them on an outpatient basis to discuss possible closure. IMPRESSION: 1. Acute right MCA infarct which may be cardioembolic in nature with evidence of a patent foramen ovale and highly mobile intraatrial septum. Other risk factors for stroke include tobacco abuse, and male sex. The patient was not on aspirin or other anti-platelets/anticoagulant medication at the time of this event. 2. Chronic obstructive pulmonary disease and insomnia. RECOMMENDATIONS: 1. Case was discussed with the patient as well as nursing staff. 2. For further evaluation, we will pursue lower extremity Dopplers and the patient will be discharged with a 30 day event monitor to be read by Dr. Prakash. 3. The patient will follow up with Dr. Samman on an outpatient basis for results of the event monitor and to discuss possible closure of the patent foramen ovale. 4. The remainder of the patient's hypercoagulable workup is pending at the time of this dictation. 5. The patient will continue aspirin and Lipitor. 6. Risk factor modification, with strongly recommend the patient quit smoking. Thank you for allowing me to participate in the care of your patient. MMDARRINL / IJN: [id number] / YASHIRA
[2019-08-31] MEDS: ETODOLAC 200 MG CAPSULE PO PRN (18:44)
[2019-08-31] MEDS: LORazepam 1 MG TAB PO SCH (21:15)
[2019-08-31] MEDS: QUEtiapine 100 MG TAB PO SCH (21:16)
[2019-08-31] MEDS: ATORVASTATIN 80 MG TAB PO SCH (21:16)
[2019-08-31] MEDS: MAGNESIUM OXIDE 400 MG TAB PO SCH (21:16)
[2019-09-01] MEDS: SYMBICORT 80-4.5 MCG INHALER INHALATION SCH (08:09)
[2019-09-01] MEDS: IPRATROPIUM 0.5 MG/2.5 ML NEBU INHALATION SCH ×2 (08:09→11:18)
[2019-09-01] MEDS: SODIUM CHLORIDE 0.9% 1,000 ML IV SCH ×3 (08:19→08:21)
[2019-09-01] MEDS: ASPIRIN 325 MG TAB PO SCH (08:40)
[2019-09-01 09:46] VITALS: RESP 18
--- NOTE | 2019-09-01 12:07 | P.DS ---
Providers Date of admission: 08/29/19 18:14 Expected date of discharge: 09/01/19 Attending physician: Stoney Pedro MD Consults: 08/29/19 18:14 Consult Physician Routine Consulting Provider: Ricky Carey Consult Reason/Comments: cva Do you want consulting provider notified?: Yes 08/30/19 12:58 Consult Physician Routine Consulting Provider: Pito Prakash Consult Reason/Comments: stroke, possibly cardioembolic Do you want consulting provider notified?: Already Contacted Primary care physician: [facility] Hospital Course: Final Diagnoses: (1) Cerebrovascular accident (CVA), acute right MCA, possibly a cardioembolic related, Current Visit: Yes Status: Acute Code(s): I63.9 - CEREBRAL INFARCTION, UNSPECIFIED SNOMED Code(s): 907666558 (2) Anxiety Current Visit: Yes Status: Acute Code(s): F41.9 - ANXIETY DISORDER, UNSPECIFIED SNOMED Code(s): 50203201 (3) Left arm weakness Current Visit: Yes Status: Acute Code(s): R29.898 - OTH SYMPTOMS AND SIGNS INVOLVING THE MUSCULOSKELETAL SYSTEM SNOMED Code(s): 377416245 (4) anxiety (5) nicotine dependence (6) COPD Hospital course:Cristino Johansen is a 54 yo M with hx tobacco abuse, anxiety who presented to the ED after experiencing L sided weakness. He states he woke up and noticed he had less strength on the L as well as difficultly buttoning his shirt and tying his shoes. He did drive to work but then when his symptoms continued he came in to the hospital. He did experience some numbness in his LUE but denies any facial numbness/droop or change in his speech. In the ED his vitals and labs were stable, brain CT unremarkable. He was evaluated by neurology and felt not to be a candidate for TPA. Pt was given ASA and started on lipitor. 08/31/2019 maintained on aspirin and Lipitor .MRI a reporting acute right MCA CVA. Echo reporting normal LV function, EF 55-60%, no thrombus. NPO. CAROLYN pending. Significant clinical improvement with left upper extremity weakness nearly resolved. Denies chest pain, palpitations or shortness of breath. Bradycardia, with borderline hypotension, systolic blood pressures in the 80s to 110s. Bilateral leg Dopplers reported negative for DVT. CAROLYN reported normal left ventricular size and systolic function, normal left atrial appendage, highly mobile left intra-atrial septum with right to left shunting with Valsalva maneuver of minimal severity, mild atrial tricuspid regurgitation, normal appearance of descending thoracic aorta normal. Cardiology recommended patient follow-up outpatient regarding evidence of patent foramen ovale and highly mobile intra-atrial septum. Significant clinical improvement. Patient will be discharged home in a stable condition pending both cardiology and neurology final DC recommendations and clearance. Continue on aspirin and statin Event Monitor At dc. Smoking cessation reinforced. The impression and plan of care has been dictated as directed. : I performed a history and examination of this patient, discussed the same with the dictator. I agree with the dictator's note ,documented as a scribe. Any additional findings or plans will be noted. Patient Condition at Discharge: Stable Plan - Discharge Summary New Discharge Prescriptions: New Aspirin 325 mg PO DAILY tab Atorvastatin [Lipitor] 80 mg PO HS #30 tab Continue Albuterol Sulfate [Proair Hfa] 2 puff INHALATION RT-Q6H PRN PRN Reason: Shortness Of Breath Diclofenac Potassium [Cataflam] 50 mg PO BID PRN PRN Reason: JOINT PAIN Magnesium Oxide 400 mg PO HS QUEtiapine [SEROquel] 100 mg PO HS LORazepam [Ativan] 1 mg PO HS Fluticasone/Umeclidin/Vilanter [Trelegy Ellipta 100-62.5-25] 1 puff INHALATION RT-DAILY Discharge Medication List Albuterol Sulfate [Proair Hfa] 2 puff INHALATION RT-Q6H PRN 06/06/16 [History] Diclofenac Potassium [Cataflam] 50 mg PO BID PRN 08/29/19 [History] Fluticasone/Umeclidin/Vilanter [Trelegy Ellipta 100-62.5-25] 1 puff INHALATION RT-DAILY 08/29/19 [History] LORazepam [Ativan] 1 mg PO HS 08/29/19 [History] Magnesium Oxide 400 mg PO HS 08/29/19 [History] QUEtiapine [SEROquel] 100 mg PO HS 08/29/19 [History] Aspirin 325 mg PO DAILY tab 09/01/19 [Rx] Atorvastatin [Lipitor] 80 mg PO HS #30 tab 09/01/19 [Rx] Follow up Appointment(s)/Referral(s): Pito Prakash MD [STAFF PHYSICIAN] - 1 Week Stoney Pedro MD [STAFF PHYSICIAN] - 3 Days Activity/Diet/Wound Care/Special Instructions: Event monitor at DC. Pending final DC recommendations, clearance from neurology
[2019-09-01 12:27] VITALS: BP 115/72; PULSE 67; TEMP 98
--- NOTE | 2019-09-01 12:40 | P.PN ---
Subjective Progress Note Date: 09/01/19 This is a pleasant 54-year-old gentleman with a past history of smoking for about 40 years, recently began cutting back, occasional drinker on the weekends, insomnia and COPD. Presented to the emergency department with complaints of left sided numbness and weakness which she noticed mostly in his left hand. He was having difficulties buttoning his shirt and tying his shoes and continued to have difficulty while at work and subsequently presented to the hospital for further evaluation. He has no history of hypertension, hyperlipidemia, diabetes, or arrhythmia. CT of the brain on admission showed findings which may represent subacute infarct, nonspecific white matter low attenuation, consider MRI for better evaluation. Chest x-ray admission showed no active cardiopulmonary disease, normal heart, no adverse change compared to old exam. CT angiogram of the head and neck were negative. MRI of the brain show findings compatible with acute ischemia in the distribution of the right parietal lobe in the MCA distribution, degenerative and nonspecific white matter changes most typically remote ischemia. Vital signs of in stable patient has been sinus rhythm on telemetry with no evidence of significant hypertension. Labs show normal CBC, normal BUN, creatinine and electrolytes. Troponin was negative 1, liver enzymes are normal. Lipids show cholesterol 127, LDL 59, HDL 56 and triglycerides of 62. He's been initiated on aspirin 325 mg by mouth daily, and atorvastatin 80 mg by mouth daily at bedtime. Home medications include Seroquel, Ativan, trelegy ellipta, Proair, magnesium, and cataflam. Patient denies any issues with chest discomfort, palpitations, dizziness, lightheadednes s, syncope, near syncope, significant shortness of breath, orthopnea or PND. 09/01/2019 Patient was seen and examined today resting comfortably in bed. Echocardiogram with Doppler study done this admission showed a normal LV systolic function with ejection fraction between 55-60%, aneurysmal intra-atrial septum and mild TR. He underwent transesophageal echocardiogram yesterday which showed highly mobile interatrial septum with right to left shunting through a small PFO of small severity noted by contrast bubble study. Patient currently denies any complaints of weakness, numbness, dizziness, lightheadedness, speech disturbances. Objective - Vital Signs Vital signs: Vital Signs Temp 98.0 F 09/01/19 11:20 Pulse 67 09/01/19 11:20 Resp 18 09/01/19 11:20 BP 115/72 09/01/19 11:20 Pulse Ox 92 L 09/01/19 11:20 Intake & Output 08/31/19 09/01/19 09/01/19 18:59 06:59 18:59 Intake Total 1325 240 Balance 1325 240 Weight 66.7 kg Intake: IV 925 Sodium Chloride 0.9% 1, 800 000 ml @ 100 mls/hr IV . Q10H ANAID Rx#:[id number] Oral 400 240 Other: Voiding Method Toilet Toilet # Voids 3 1 1 - Exam PHYSICAL EXAMINATION: HEENT: Head is atraumatic, normocephalic. Pupils equal, round. Neck is supple. There is no elevated jugular venous pressure. No carotid bruit. HEART EXAMINATION: Heart sounds regular, S1 and S2 normal. No murmur or gallop heard. CHEST EXAMINATION: Lungs reveal diminished air entry bilaterally. No chest wall tenderness is noted on palpation or with deep breathing. ABDOMEN: Soft, nontender. Bowel sounds are heard. No organomegaly noted. EXTREMITIES: 2+ peripheral pulses with no evidence of peripheral edema and no calf tenderness noted. NEUROLOGIC patient is awake, alert and oriented x3. - Labs CBC & Chem 7: 08/29/19 17:02 08/29/19 17:02 Labs: Abnormal Lab Results - Last 24 Hours (Table) 08/30/19 Range/Units 11:07 Lupus Anticoag aPTT 46 H (<43) Sec(s) Assessment and Plan Assessment: #1 right parietal lobe CVA in the MCA distribution with evidence of patent foramen ovale with cplcx-bg-psgw shunting, amount of shunting a small #2 nicotine dependence #3 COPD Plan: From cardiology's perspective, patient is stable for discharge home. Continue aspirin and statin. We will follow-up with the patient in the office and discuss possible PFO closure in the future. CARE COORDINATOR note has been reviewed, I agree with a documented findings and plan of care. Patient was seen and examined.
[2019-09-02 11:42] LABS: Anti-Thrombin III Activity 72 % (79-109)
[2019-09-02 11:55] LABS: Protein C (Activity) 107 % (71-138)
== END 2019-09-01 12:55 | disposition home or self-care (01) | DRG 65 ==
LOC: EC 15:32 → 3SCARD 18:14
PROVIDERS: ADMIT Family Medicine; ATTEND Family Medicine
PROC: B24BZZ4 Ultrasonography of Heart with Aorta, Transesophageal (ICD-10-PCS; principal; 2019-08-31 10:00)
DX: I63.511 Cerebral infarction due to unspecified occlusion or stenosis of right middle cerebral artery (principal); Q21.1 Atrial septal defect; Z11.59 Encounter for screening for other viral diseases; G83.24 Monoplegia of upper limb affecting left nondominant side; J44.9 Chronic obstructive pulmonary disease, unspecified; R29.702 NIHSS score 2; R40.2362 Coma scale, best motor response, obeys commands, at arrival to emergency department; R40.2142 Coma scale, eyes open, spontaneous, at arrival to emergency department; R40.2252 Coma scale, best verbal response, oriented, at arrival to emergency department; R29.703 NIHSS score 3; F17.210 Nicotine dependence, cigarettes, uncomplicated; F41.9 Anxiety disorder, unspecified; I83.90 Asymptomatic varicose veins of unspecified lower extremity; I67.9 Cerebrovascular disease, unspecified; R29.810 Facial weakness; G47.00 Insomnia, unspecified; I07.1 Rheumatic tricuspid insufficiency; R00.1 Bradycardia, unspecified; Z71.6 Tobacco abuse counseling; Z83.3 Family history of diabetes mellitus; Z82.49 Family history of ischemic heart disease and other diseases of the circulatory system; I25.2 Old myocardial infarction; Z79.51 Long term (current) use of inhaled steroids; Z79.899 Other long term (current) drug therapy; Z87.828 Personal history of other (healed) physical injury and trauma; Z98.890 Other specified postprocedural states; Z90.49 Acquired absence of other specified parts of digestive tract
CPT/HCPCS: 36415; 70450; 70496; 70498; 70551; 71046; 80053; 80061; 80306; 81241; 84484; 85025; 85300; 85303; 85306; 85610; 85613; 85730; 85732; 86147; 93005; 93270; 93306; 93312; 93320; 93325; 93970; 94640; 96360; 96361; 99291

== ENCOUNTER → 2019-11-23 | Outpatient (CLI) | payer BC ==
--- NOTE | 2019-11-24 08:04 | XR ---
EXAMINATION TYPE: XR chest 2V DATE OF EXAM: 11/23/2019 COMPARISON: 08/29/2019 HISTORY: 54-year-old male with low oxygen saturation. R09.02 Z86.73 R53.83 TECHNIQUE: Frontal and lateral views FINDINGS: Heart normal size. Aorta and pulmonary vasculature within normal limits. Mild hyperinflation may rela te to depth of inspiration. Underlying emphysema suspected. Some focal opacity along the right heart margin may represent superimposition shadow. Otherwise, no consolidation or pleural effusion. IMPRESSION: 1. Suspect underlying COPD. 2. Focal opacity along the right heart margin, likely summation artifact. Contrast enhanced CT of the chest can exclude an underlying pulmonary nodule.
== END | disposition home or self-care (01) ==
LOC: RAD 15:25
PROVIDERS: ATTEND Family Medicine
DX: R91.1 Solitary pulmonary nodule (principal); R91.8 Other nonspecific abnormal finding of lung field; Z86.73 Personal history of transient ischemic attack (TIA), and cerebral infarction without residual deficits
CPT/HCPCS: 71046

== ENCOUNTER → 2019-12-31 | Outpatient (CLI) | payer BC ==
--- NOTE | 2019-12-31 08:16 | MR ---
EXAMINATION TYPE: MR shoulder LT wo con DATE OF EXAM: 12/31/2019 COMPARISON: None HISTORY: Pain in left shoulder and arm TECHNIQUE: Multiplanar, multisequence imaging of the left shoulder is performed without contrast. FINDINGS: There is a complete tear of the rotator cuff tendons including the supraspinatus and infraspinatus te ndons. Previous surgery suspected. Bony labrum intact and non arthrogram technique. There is a small joint effusion. Fluid in the subacr omial subdeltoid bursa noted. Bicipital tendon is situated in the bicipital groove. Inferior glenohumeral ligament is intact. Intra capsular portion of biceps tendon demonstrates intravenous substances which could be associated with tendinitis. No significant marrow edema or contusion. Mild hypertrophic change of the AC joint. There is mild mas s effect upon the upper margin of the supraspinatus tendon. IMPRESSION: 1. Postsurgical change with suspected complete tear through thickness supraspinatus and infraspinatus tendons 2. Intrasubstance signal intracapsular portion biceps tendon correlate for tendinosis.
== END | disposition home or self-care (01) ==
LOC: RADMRIMAIN 07:25
PROVIDERS: ATTEND Family Medicine
DX: M25.512 Pain in left shoulder (principal); Z98.890 Other specified postprocedural states

== ENCOUNTER → 2020-08-03 | Outpatient (CLI) | payer BC ==
--- NOTE | 2020-08-03 10:02 | XR ---
Lumbar spine. HISTORY: Back pain and left lower extremity radiculopathy comparison: None. TECHNIQUE: 3 views lumbar spine were obtained. EYES: There is mild levoscoliosis of lumbar spine. There is a grade 1 anterolisthesis of L5 and S1. The lumbar vertebral segments are normal in height. There is mild to moderate degenerative disease at the L3-4, L4-5 and L5-S1 levels with moderate disc space narrowing and spondylosis. The sacrum and SI joints are normal. IMPRESSION: 1. Grade 1 anterolisthesis of L5 and S1. 2. Moderate degenerative disc disease at the L3-4, L4-5 and L5-S1 levels.
--- NOTE | 2020-08-08 09:55 | P.ARTDOP ---
Arterial Doppler LOWER EXTREMITY ARTERIAL DOPPLER: DATE OF SERVICE: 08/03/2020 Reason for study: Left leg pain. Doppler waveforms: Multiphasic bilaterally throughout with mild digital blunting.. Pulse volume recording: []. Pressure gradients: None. Ankle-brachial indices: Greater than 1 bilaterally. Toe brachial indices: [] on the right, [] on the left Impression: Normal study.
== END | disposition home or self-care (01) ==
LOC: RADUSWWP 08:59
PROVIDERS: ATTEND Family Medicine
DX: M51.37 Other intervertebral disc degeneration, lumbosacral region (principal); M43.17 Spondylolisthesis, lumbosacral region; M79.662 Pain in left lower leg
CPT/HCPCS: 72100; 93922

== ENCOUNTER → 2020-09-15 | Outpatient (CLI) | payer BC ==
--- NOTE | 2020-09-15 11:01 | MR ---
EXAMINATION TYPE: MR lumbar spine wo con DATE OF EXAM: 09/15/2020 10:50 AM COMPARISON: NONE HISTORY: Low back pain down left leg for 2 months. Multiplanar, MultiSpin echo imaging of the lumbar spine was performed. L1-L2: Normal disc appearance without desiccation. No herniation, protrusion or disc bulging. No ca nal stenosis is present. Foramina are patent bilaterally. L2-L3: Normal disc appearance without desiccation. No herniation, protrusion or disc bulging. No ca nal stenosis is present. Foramina are patent bilaterally. L3-L4: Normal disc appearance without desiccation. No herniation, protrusion or disc bulging. No ca nal stenosis is present. Foramina are patent bilaterally. L4-L5: Moderate decreased signal and loss of height compatible with degenerative disc disease. Mild p osterior disc bulge with mild effacement ventral thecal sac. There is no evidence for disc herniation or central stenosis. Facet joint arthropathy without significant foraminal encroachment. L5-S1: Severe disc desiccation noted. Grade 1 anterolisthesis L5 on S1 measuring 7.6 mm. Posterior di sc bulge. Mild effacement ventral thecal sac. No evidence for central stenosis or lateral recess sten osis. Severe facet joint arthropathy with bilateral foraminal encroachment left greater than right. N o evidence of spondylolysis. Lumbar segments are intact. No paraspinal masses are identified. Conus medullaris has a normal appe arance. IMPRESSION: 1. Multilevel degenerative disc disease. Grade 1 anterolisthesis L5 on S1 as noted above.
== END | disposition home or self-care (01) ==
LOC: RADMRIMAIN 10:12
PROVIDERS: ATTEND Family Medicine
DX: M51.36 Other intervertebral disc degeneration, lumbar region (principal); M43.17 Spondylolisthesis, lumbosacral region
CPT/HCPCS: 72148

== ENCOUNTER → 2020-11-14 | Outpatient (CLI) | payer BC ==
--- NOTE | 2020-11-14 09:41 | CTL ---
EXAMINATION TYPE: CT Low Dose Lung DATE OF EXAM ORDERED: 11/14/2020 HISTORY: 55-year-old male history of smoking. Lung cancer screening. Z87.891. CT DLP: 62.[address] CTDI: 1.7 mGy Automated exposure control for dose reduction was used. SCREENING VISIT: Baseline COMPARISON: Radiographs 08/29/2019 TECHNIQUE: Low dose computed tomography scan was performed through the chest with coronal and sagitta l reconstructions. CT DIAGNOSTIC QUALITY: Satisfactory FINDINGS: Heart normal size with trace anterior pericardial fluid. Ectatic aortic root at 3.7 cm. Bovine configuration to the aortic arch. No thoracic lymphadenopathy by CT size criteria. Subpleural reticulations and microcystic change. Some paraseptal and centrilobular emphysema in the u pper lungs along with biapical pleural-parenchymal scarring. A few scattered 6 mm and smaller pulmonary nodules are present. Some of these areas are present in th e subpleural region of the upper lungs measuring up to 7 mm (on the left axial image 76), likely rela ting to scarring. No consolidation or pleural effusion. Tiny hiatal hernia. Visualized upper abdomen shows no gross abnormality. Bones: Severe anterior vertebral wedge deformity of T5 with mild anterior displacement of the fractur ed vertebral body. No gisela retropulsion. Accentuated thoracic kyphosis here. IMPRESSION: 1. Lung RADS 3, probably benign. Scattered 6 mm and smaller pulmonary nodules. Some subpleural nodule s measuring up to 7 mm in the upper lungs probably related to pleural parenchymal scarring. Six-month follow-up low-dose CT chest to reassess. 2. COPD as well as superimposed mild interstitial fibrosis. 3. Anterior wedge deformity of T5 suspected chronic and may have been present on the 08/29/[address] Clinically correlate. CT LUNG RAD AND CT CHEST RECOMMENDATION: Lung-Rad 3 Probably Benign: 6 month follow-up LDCT.
== END | disposition home or self-care (01) ==
LOC: RADCTMAIN 08:14
PROVIDERS: ATTEND Family Medicine
DX: R91.1 Solitary pulmonary nodule (principal); J44.9 Chronic obstructive pulmonary disease, unspecified; J84.10 Pulmonary fibrosis, unspecified; Z87.891 Personal history of nicotine dependence
CPT/HCPCS: 71271

== ENCOUNTER → 2021-07-02 | Outpatient (CLI) | payer BC ==
[2021-07-02 13:54] LABS: INR 0.9 (<1.2); Partial Thromboplastin Time 26.6 sec (22.0-30.0); Prothrombin Time 9.8 sec (9.0-12.0)
[2021-07-02 14:26] LABS: Appearance,Urine Clear (Clear); Bilirubin,Urine Negative (Negative); Blood,Urine Negative (Negative); Color,Urine Light Yellow; Glucose,Urine (UA) Negative (Negative); Ketones,Urine Negative (Negative); Leukocyte Esterase,Urine Negative (Negative); Nitrite,Urine Negative (Negative); PH, Urine 6.5 (5.0-8.0); Protein,Urine Negative (Negative); Specific Gravity,Urine 1.005 (1.001-1.035); Urobilinogen,Urine <2.0 mg/dL (<2.0)
--- NOTE | 2021-07-02 15:55 | XR ---
EXAMINATION TYPE: XR chest 2V DATE OF EXAM: 07/02/2021 COMPARISON: 11/23/2019 HISTORY: 56-year-old male Z01.818, presurgical evaluation for lumbar surgery. TECHNIQUE: Frontal and lateral views FINDINGS: Heart normal size. Aorta and pulmonary vasculature within normal limits. Mild S-shaped curvature of t he thoracolumbar spine. No consolidation or pleural effusion seen. Mild hyperinflation. IMPRESSION: Mild hyperinflation may relate to depth of inspiration or underlying emphysema. No acute process seen . Refer to recommendations made on the lung cancer screening CT of 11/14/2020.
[2021-07-02 18:45] LABS: Basophils # (A) 0.12 X 10*3/uL (0.00-0.10); Basophils % (A) 1.6 %; Eosinophils # (A) 0.32 X 10*3/uL (0.04-0.35); Eosinophils % (A) 4.2 %; HCT 45.4 % (39.6-50.0); HGB 14.9 g/dL (13.0-17.0); Immature Grans, Automated 0.3 %; Lymphocytes # (A) 2.36 X 10*3/uL (0.90-5.00); Lymphocytes % (A) 30.7 %; MCH 30.6 pg (27.0-32.0); MCHC 32.8 g/dL (32.0-37.0); MCV 93.2 fL (80.0-97.0); Mean Platelet Volume 10.1 fL (9.5-12.2); Monocytes # (A) 0.71 X 10*3/uL (0.20-1.00); Monocytes % (A) 9.2 %; NRBC Per 100 WBC 0 /100 WBCS (0.0-0.0); Neutrophils # (A) 4.16 X 10*3/uL (1.80-7.70); Platelet Count 321 X 10*3/uL (140-440); RBC 4.87 X 10*6/uL (4.40-5.60); WBC 7.69 X 10*3/uL (4.50-10.00)
[2021-07-02 18:51] LABS: African American GFR (CKD) 103.8 (60.0-200.0); Albumin 4.7 g/dL (3.8-4.9); Albumin/Globulin Ratio 1.85 (1.60-3.17); Anion Gap 15.2 mmol/L (10.00-18.00); BUN/Creat Ratio 7.52 Ratio (12.00-20.00); Blood Urea Nitrogen 7.1 mg/dL (9.0-27.0); Calcium 9.4 mg/dL (8.7-10.3); Carbon Dioxide 21.3 mmol/L (20.0-27.5); Globulin 2.5 g/dL (1.6-3.3); Non-African American GFR(CKD) 89.6 (60.0-200.0); Potassium 4.1 mmol/L (3.5-5.5); Total Bilirubin 0.4 mg/dL (0.30-1.20); Total Protein 7.2 g/dL (6.2-8.2)
== END | disposition home or self-care (01) ==
LOC: LABPAT 12:22
PROVIDERS: ATTEND Orthopaedic Surgery Orthopaedic Surgery of the Spine
DX: Z01.818 Encounter for other preprocedural examination (principal); Z01.812 Encounter for preprocedural laboratory examination; M51.24 Other intervertebral disc displacement, thoracic region
CPT/HCPCS: 71046; 80053; 81003; 85025; 85610; 85730; 87070; 93005

== ENCOUNTER 2021-07-24 06:38 | Inpatient (IN) | payer BC ==
[~2021-07-24 06:38] MED LIST changes: -DEXAMETHASONE SOD PHOSPHATE 10 MG/ML 1 ML VIAL IV ONE; +DEXAMETHASONE SOD PHOSPHATE 4 MG/ML 1 ML VIAL IV ONE; +HYDROmorphone 0.5 MG/0.5 ML SYRINGE IVP PRN; -HYDROmorphone 1 MG/ML 1 ML SYRINGE IVP PRN; -LIDOCAINE 1% 20 ML VIAL (10MG/ML) FOR IV START INTRADERMA PRN; -MIDAZOLAM 2 MG/2 ML VIAL IV PRN; -SCOPOLAMINE 1.5MG/72HR PATCH TRANSDERM ONE; +VANCOMYCIN 1,000 MG in SODIUM CHLORIDE 0.9% 250 ML IVPB PRN; +ceFAZolin 1,000 MG in SODIUM CHLORIDE 0.9% IRRIGATIO 1,000 ML IRRIGATION PRN; -ceFAZolin 2 GM in SODIUM CHLORIDE 0.9% 100 ML IVPB ONE
[2021-07-24] MEDS: LACTATED RINGERS 1,000 ML IV SCH (07:40)
[2021-07-24] MEDS ORDERED: PHENYLEPHRINE-0.9% NACL SYG 1,000 MCG/10 ML SYRINGE ONE (07:54)
[2021-07-24] MEDS ORDERED: HYDROmorphone (PF) 1 MG/ML ONE (07:54)
[2021-07-24] MEDS ORDERED: GLYCOPYRROLATE 0.2 MG/ML 2 ML VIAL ONE (07:54)
[2021-07-24] MEDS ORDERED: ROCURONIUM 10 MG/ML (5 ML VIAL) IV ONE (07:54)
[2021-07-24] MEDS ORDERED: MIDAZOLAM 2 MG/2 ML VIAL ONE (07:54)
[2021-07-24] MEDS ORDERED: LIDOCAINE 2% INJ 20 MG/ML (2 ML VIAL) ONE (07:54)
[2021-07-24] MEDS ORDERED: SUCCINYLCHOLINE CHLORIDE 100 MG/5 ML SYR IV ONE (07:54)
[2021-07-24] MEDS ORDERED: PROPOFOL 10 MG/ML 20 ML VIAL IV ONE (07:54)
[2021-07-24] MEDS ORDERED: NEOSTIGMINE 1 MG/ML 10 ML VIAL ONE (07:54)
[2021-07-24] MEDS ORDERED: fentaNYL (PF) 50 MCG/ML 2 ML AMP ONE (07:54)
[2021-07-24] MEDS ORDERED: BUPIVACAIN-EPI 0.25%-1:200,000 30 ML VIAL SQ ONE (08:47)
[2021-07-24] MEDS ORDERED: LACTATED RINGERS 1,000 ML IV ONE ×2 (09:00)
[2021-07-24] MEDS ORDERED: BENZOCAINE/MENTHOL LOZENG 1 EACH LOZENGE MUCOUS MEM PRN (10:43)
[2021-07-24] MEDS ORDERED: ONDANSETRON 4 MG/2 ML VIAL IVP PRN (10:47)
[2021-07-24] MEDS ORDERED: diazePAM 5 MG TAB PO PRN (10:47)
[2021-07-24] MEDS ORDERED: ALBUTEROL NEBULIZED 2.5 MG/3 ML INHALATION PRN (10:49)
--- NOTE | 2021-07-24 10:55 | P.OP ---
Date of Procedure: 07/24/21 Preoperative Diagnosis: Spondylolisthesis L5-S1, spinal stenosis L5-S1, herniated nucleus pulposis L5- S1, scoliosis, degenerative disc disease, lower extremity radiculopathy, low back pain Postoperative Diagnosis: Same Anesthesia: GETA Pathology: none sent Condition: stable Disposition: PACU Description of Procedure: DESCRIPTION OF PROCEDURE(S): BRIEF OPERATIVE NOTE Preoperative Diagnosis: Spondylolisthesis L5-S1, spinal stenosis L5-S1, herniated nucleus pulposis L5-S1, scoliosis, degenerative disc disease, lower extremity radiculopathy, low back pain Postoperative Diagnosis: Same Procedure: Laminectomy and decompression L5-S1 Computer CT navigation aided Minimally invasive Posterior lateral decompression and facet and lysis fusion L5-S1 Minimally invasive Transforaminal lumbar interbody fusion for a 360 fusion L5-S1 Discectomy for decompression L5-S1 Placement of interbody graft L5-S1 Use of computer navigation for fusion and placement of pedicle screws at L5 and S1 Local autogenous bone grafting Aspiration of bone marrow from the vertebral body pedicle Use of bone graft extenders Surgeon: Dr. Crum Chair Finisher: Chapito POMPA who is present throughout the entire the case persistence during positioning, dissection, exposure, visualization, and all crucial elements of the case as well as closure. Anesthesia: General anesthesia Estimated blood loss: Approximately 100 mL Complications: None apparent Components implanted: K2M minimally invasive [place] pedicle screw system withscrews measuring 6.5 mm in diameter to rods one 6 mm peek interbody cage with 10 mL of osteo amp bio4 bone graft substitute and 30 mL of the BX bone fibers to supplement the local autogenous bone graft and bone marrow aspirate Disposition: To recovery room in good stable condition. OPERATIVE INDICATIONS The patient has had severe issues at their lower extremity in her lower back over the past several years with significant worsening over the past several months. Over the past few months the patient had pain at their back and their lower extremities. The patient is having severe radicular symptoms at their lower extremity with weakness. The patient is having significant pain in their back. They are unable to obtain any long-term comfort. We did aggressive conservative treatment with medications therapy and interventional pain management however thery were not having any relief. The patient also showed evidence of a listhesis with some dynamic instability at L5-S1 with spondylolysis and scoliosis. The issues at L5-S1 correlated well with his low back and lower extremity symptoms The patient has been through conservative treatment. We discussed various treatment options including surgery, and the patient wishes to proceed with surgery We discussed the risk, patient's alternatives and benefits of surgery including but not limited to, risk of bleeding risk of infection, risk of need for further surgery, risk of decreased, loss of motion, muscle function, malunion nonunion, hardware failure, nerve damage, paralysis, heart attack, blindness and . They understood issues with the current pandemic and the possibility of exposure. OPERATIVE SUMMARY After discussing all the risks, patient alternatives and benefits at length, the patient elected to proceed with surgical intervention, signed informed consent, and presented for their procedure. The patient was seen and examined in the preoperative holding area and the surgical site was marked. The patient was given antibiotics and brought to the operating room. The patient was sedated and intubated by anesthesia in standard fashion. The patient was positioned on to the operating room table in a prone position on the appropriate frame which was well-padded and well molded. We were careful to pad any bony prominences and pressure points. We were careful to maintain the patient's cervical spine and good neutral alignment and position throughout. The patient was prepped and draped in a normal standard fashion. An appropriate timeout and keystone protocol performed. We were able to proceed with the surgery. The local wound area was infiltrated with local anesthetic. Over the right iliac crest I was able to make small stab incisions and establish a guidepin screw fixation to the iliac crest 2. I was able place the computer referencing device over the guidepins to establish an appropriate reference point for the Ziem CT navigation. We then were able to place patient in an appropriate drape and do a navigation spin for visualization and 3-D reconstruction of the lumbar spine. I was able utilize C-arm guidance and navigation to establish appropriate position over the pedicles bilaterally at the appropriate levels at L5 and S1 . With the appropriate levels confirmed was able to make small incisions over the appropriate pedicle sites bilaterally. Utilizing the computer navigation device I was able to establish bony landmarks at the right iliac crest for a bony reference point for the navigation device. I was able to establish a Jamshidi needle over the lateral aspect of the pedicle and advanced the trocar into the pedicle being careful not to breech superiorly inferiorly medially or laterally using computer navigation device. Position was confirmed regularly with AP and lateral images on C-arm and with the computer navigation device at the appropriate levels bilaterally. I was able to establish the trocar into the pedicle appropriately into the posterior aspect of the vertebral body bilaterally at the appropriate levels. This was done at each of the pedicle positions and each of the vertebrae. At the superior vertebrae I was able to take approximately 25 mL of bone aspiration from L5 on the right for use later in the case to supplement the allograft and autograft bone. I was able place the guidewire into the trocar and into the vertebral body appropriately under C-arm guidance. Dissection was taken down over the wire to the appropriate starting position for the screw placed. The appropriate length screw was chosen, threaded over the guidewire and screwed appropriately into the pedicle and vertebral body under C-arm guidance in excellent alignment and position with good bony purchase. This is done at each of the screw sites at the appropriate levels at L5 and S1.. With the screws intact I extended the incision to connect the screw hole sites on the most symptomatic side on the left. I dissected down to establish access over the pars and lamina to the base of the spinous process. No was made also of the lysis at L5 bilaterally. I was able to expose the facet joint. The capsule the facet on the left was taken down and showed some facet arthrosis at the joint. I was able to use a combination of curettes and Kerr[place] rongeurs and a high-speed drill to take down the facet joint and do a facetectomy. I was able get excellent foraminal decompression and central decompression with undermining across midline to perform a laminectomy centrally and contralaterally. As able get good central decompression. The ligamentum flavum was taken down to further decompress centrally and at bilateral neural foramen. I was able to expose the disc space and visualize the traversing nerve root. Note was made of some disc protrusion and disc herniation that was abutting the traversing nerve root at the level causing further compression of the nerve root. There is an obvious listhesis. I was able to establish a annulotomy at the appropriate level protecting soft tissue and neural structures. Note was made of some disc desiccation at the disc. I performed a complete discectomy with accommodation of curettes and rasps and scrapers. I was able get good endplate preparation at the disc space. I sized for the appropriate size inter body spacer protecting the soft tissue and neural structures. The wound was copiously irrigated and suctioned dry. There is no evidence of any dural tear or leak. I was able to pack the disc space with local autogenous bone graft as well as a small amount of bone graft which was also placed into the interbody cage itself. Protecting the soft tissue structures and neural structures I was able place the interbody cage in good alignment and good position with good fit and fill at the interbody space. Position was confirmed with C-arm guidance. Good hemostasis maintained. There is no evidence of any dural tear or leak. The wound was irrigated and suctioned dry. With the hardware intact, intraoperative C-arm imaging was again taken which showed good alignment and position of the hardware at the appropriate levels. We were then able to measure, contour and place the rods and appropriate hardware bilaterally. I was able to place capcrews, tighten them down, and torque them with the torque screwdriver appropriately. With this intact I was able to place the local autogenous bone graft with additional bone graft enhancer as necessary into the posterior lateral gutters over the decorticated transverse processes and facet joints on the contralateral side as well as the lysis itself on the right side and place bone graft within the lysis.. The remainder of the bone graft was placed over the facet joint on the contralateral side after taking down the facet joint capsule. With the bone graft intact, a stable construct, and good decompression at the appropriate levels, we were able to proceed with closure. Good hemostasis was maintained. There is no evidence of dural tear or leak. The fascia was closed for a watertight closure. he subcuticular tissue was closed with absorbable suture. The wound was cleaned and dried and dressed with the appropriate dressing. The drapes were broken down. The patient was gently rolled back onto their hospital bed being careful to maintain their cervical spine and good neutral alignment and position. They were woken up by anesthesia, extubated, and brought to the recovery room in good stable condition. The patient will be admitted to the hospital for appropriate postoperative care, medical management and monitoring. We will continue to follow them closely about the postoperative course.
[2021-07-24] MEDS: HYDROcodone/APAP 5-325MG 1 EACH TAB PO PRN ×2 (13:41→22:22)
[2021-07-24] MEDS: HYDROmorphone 0.5 MG/0.5 ML SYRINGE IVP PRN ×2 (13:41→20:23)
[2021-07-24] MEDS: SODIUM CHLORIDE 0.9% 1,000 ML IV SCH (13:48)
--- NOTE | 2021-07-24 14:41 | FL ---
EXAMINATION TYPE: FL guidance operating room, XR lumbar spine 2 or 3V DATE OF EXAM: 07/24/2021 CLINICAL HISTORY: Low back pain. TECHNIQUE: Fluoroscopy. Lumbar spine 2 views intraoperatively COMPARISON: MRI lumbar spine September 15, 2020 FINDINGS: Fluoroscopic guidance was provided during lumbar fusion procedure performed by Dr. Crum. A total of 17 seconds of fluoroscopic time was utilized during the procedure and 4 spot intraoperati ve images are acquired. Images saved to PACS are suboptimal due to overpenetration. There is placement of bilateral interpedi cular rods and screws at L5-S1 level noted. IMPRESSION: As Above.
[2021-07-24] MEDS: HYDROmorphone 1 MG/ML 1 ML SYRINGE IVP PRN (16:41)
[2021-07-24] MEDS: VANCOMYCIN 1,250 MG in SODIUM CHLORIDE 0.9% 250 ML IVPB SCH (16:45)
[2021-07-24] MEDS: QUEtiapine 100 MG TAB PO SCH (22:13)
[2021-07-24] MEDS: LORazepam 1 MG TAB PO SCH (22:13)
[2021-07-24] MEDS: CYCLOBENZAPRINE 10 MG TAB PO PRN (22:22)
[2021-07-25] MEDS: SODIUM CHLORIDE 0.9% 1,000 ML IV SCH ×2 (01:49→17:16)
[2021-07-25] MEDS: HYDROmorphone 0.5 MG/0.5 ML SYRINGE IVP PRN (01:50)
[2021-07-25] MEDS: VANCOMYCIN 1,250 MG in SODIUM CHLORIDE 0.9% 250 ML IVPB SCH ×2 (03:58→16:58)
[2021-07-25] MEDS: HYDROcodone/APAP 5-325MG 1 EACH TAB PO PRN ×3 (07:52→17:15)
[2021-07-25] MEDS ORDERED: VANCOMYCIN 750 MG in SODIUM CHLORIDE 0.9% 250 ML IVPB SCH (08:01)
[2021-07-25] MEDS: SYMBICORT 80-4.5 MCG INHALER INHALATION SCH ×2 (08:31→20:09)
[2021-07-25] MEDS: IPRATROPIUM 0.5 MG/2.5 ML NEBU INHALATION SCH ×4 (08:31→20:09)
[2021-07-25] MEDS: SENNOSIDES-DOCUSATE SODIUM 1 EACH TAB PO SCH (09:18)
[2021-07-25] MEDS: HYDROmorphone 1 MG/ML 1 ML SYRINGE IVP PRN ×3 (09:26→19:43)
[2021-07-25 09:29] LABS: Basophils # (A) 0.05 X 10*3/uL (0.00-0.10); Basophils % (A) 0.5 %; Eosinophils # (A) 0.23 X 10*3/uL (0.04-0.35); Eosinophils % (A) 2.4 %; HCT 38.4 % (39.6-50.0); HGB 12.3 g/dL (13.0-17.0); Immature Grans, Automated 0.3 %; Lymphocytes # (A) 2.08 X 10*3/uL (0.90-5.00); MCV 96.7 fL (80.0-97.0); Monocytes % (A) 9.5 %; NRBC Per 100 WBC 0 /100 WBCS (0.0-0.0); Neutrophils # (A) 6.18 X 10*3/uL (1.80-7.70); Neutrophils % (A) 65.3 %; Platelet Count 235 X 10*3/uL (140-440); RBC 3.97 X 10*6/uL (4.40-5.60); RDW 14.9 % (11.5-14.5); WBC 9.47 X 10*3/uL (4.50-10.00)
[2021-07-25 09:47] LABS: African American GFR (CKD) 115.7 (60.0-200.0); Anion Gap 8.2 mmol/L (10.00-18.00); BUN/Creat Ratio 9.25 Ratio (12.00-20.00); Blood Urea Nitrogen 7.4 mg/dL (9.0-27.0); Calcium 8.5 mg/dL (8.7-10.3); Carbon Dioxide 24.8 mmol/L (20.0-27.5); Non-African American GFR(CKD) 99.9 (60.0-200.0); Potassium 4.2 mmol/L (3.5-5.5)
--- NOTE | 2021-07-25 11:00 | P.PN ---
Progress Note - Text Progress Note Date: 07/25/21 Postoperative day #1 Patient is seen and examined today at bedside. The patient has some pain around the surgical site as expected. Pain is being controlled with medication. He was able get up in a chair with some assistance and he feels like he is doing better. His legs are feeling good. He denies any nausea vomiting. Physical Exam Afebrile with stable vital signs Abdomen is soft nontender. Chest has good excursion deep and space expiration The incision site is clean dry and intact. No erythema there is no purulence. His back is clear. There is some swelling around the surgical site but appears stable. Extremities have not had neurologic change from prior to surgery. He has sustained dorsal flexion plantarflexion and EHL intact Calves and thighs were soft nontender without evidence of DVT. Assessment/Plan Postoperative day #1 status post minimally invasive decompression fusion L5-S1 for spondylolisthesis with spinal stenosis and lower extremity radiculopathy. Patient is progressing as expected from the surgery. He seems to be doing well and is able to advance his mobility. He still having significant difficulty on his own and heels that he may need 1 more night before his able to return home. We'll discontinue his [place] and make sure that he is able to urinate on his own as well. We will continue to increase the patient's mobilization with therapy. We will continue pain control with oral or IV medications. We'll continue to follow patient closely.
[2021-07-25] MEDS: LACTATED RINGERS 1,000 ML IV SCH (11:05)
[2021-07-25] MEDS: PANTOPRAZOLE 40 MG/10 ML VIAL IVP SCH (15:11)
[2021-07-25 15:22] VITALS: BMI 18.4
[2021-07-25] MEDS: CYCLOBENZAPRINE 10 MG TAB PO PRN (19:43)
[2021-07-25] MEDS: LORazepam 1 MG TAB PO SCH (21:44)
[2021-07-25] MEDS: QUEtiapine 100 MG TAB PO SCH (21:44)
[2021-07-26] MEDS: CYCLOBENZAPRINE 10 MG TAB PO PRN (04:45)
[2021-07-26] MEDS: VANCOMYCIN 1,250 MG in SODIUM CHLORIDE 0.9% 250 ML IVPB SCH (04:45)
[2021-07-26] MEDS: HYDROcodone/APAP 5-325MG 1 EACH TAB PO PRN (04:45)
[2021-07-26] MEDS: SODIUM CHLORIDE 0.9% 1,000 ML IV SCH ×2 (07:27→17:34)
[2021-07-26] MEDS: LACTATED RINGERS 1,000 ML IV SCH (07:27)
[2021-07-26] MEDS: IPRATROPIUM 0.5 MG/2.5 ML NEBU INHALATION SCH ×4 (08:29→19:34)
[2021-07-26] MEDS: SYMBICORT 80-4.5 MCG INHALER INHALATION SCH ×2 (08:29→19:34)
[2021-07-26] MEDS: SENNOSIDES-DOCUSATE SODIUM 1 EACH TAB PO SCH (09:06)
[2021-07-26] MEDS: PANTOPRAZOLE 40 MG/10 ML VIAL IVP SCH (09:06)
[2021-07-26] MEDS ORDERED: HYDROcodone/APAP 7.5-325MG 1 EACH TAB PO PRN (09:15)
--- NOTE | 2021-07-26 09:22 | P.PN ---
Progress Note - Text Progress Note Date: 07/26/21 Orthopedic Spine History of present illness: Patient is a pleasant 56-year-old male who is seen and examined at the bedside following posterior lateral decompression and fusion performed Thursday. Patient states they are doing ok post operatively. He has been having some difficulty with pain control at his lumbar spine. His left lower extremity radiculopathy symptoms continue be present but have improved. He does state he is having some difficulty with mobility and getting out of bed. He does not feel he is ready for discharge home today. He has been requiring IV Dilaudid for pain control. We did discuss we'll plan to discontinue IV Dilaudid and adjust his oral hydrocodone for better pain control. Currently does not complain of nausea, vomiting, fever, or chills. Patient is eating and voiding freely without difficulty. Physical Exam Lumbar Fusion: Status post surgical day number 2 Patient is awake, alert, and oriented 3 Vital signs stable Good chest excursion with deep inspiration and expiration Abdomen soft nontender Dorsiflexion, plantarflexion, and extensor hallucis longus positive sustained bilaterally No signs or symptoms of DVT; no calf pain; pneumatic cuffs intact bilateral lower extremities Optifoam dressings are clean, dry, and intact over the lumbar spine and right iliac crest; no erythema, purulence, or signs of infection Neurovascularly intact bilaterally lower extremities Assessment: Status post L5-S1 minimally invasive posterior lateral decompression and fusion with transforaminal lumbar interbody fusion Low back pain Left lower extremity radiculopathy Lumbosacral muscle spasm L5-S1 spondylolisthesis Lumbar degenerative scoliosis L5-S1 herniated nucleus pulposis L5-S1 spinal stenosis Plan: 1. Ambulate as tolerated; work with Physical Therapy to increase mobilization 2. Continue pain control with IV and oral medications; will plan to begin weaning the patient off of IV narcotic medication in anticipation for discharge home in the next 1-2 days; we will discontinue hydrocodone 5 mg/325 mg and and hydrocodone 7.5 mg/325 mg 1 tab every 4 hours as needed for pain. MAPS has been reviewed today, 07/26/2021, with an Overall Overdose Risk Score of . An "Opiod Start Talking" Form has been signed and placed in the patient's chart. A prescription has been written for hydrocodone 7.5 mg/325 mg 1 tablet every 4 hours as needed for pain, dispense #42. Patient is also given a prescription for cyclobenzaprine one tab 3 times a day as needed for muscle spasm, dispensed #60. 3. Dressings to remain intact with Optifoam; patient may shower with dressings intact 4. Medical management can continue to manage patient for patient's other medical diagnoses 5. We will continue to follow the patient closely; depending on the patient's progress, we may plan for discharge home as early as tomorrow, 07/26/2021 6. Patient can follow-up with Chapito Bryant PA-C or Dr. Darren Crum at [facility] in 2-3 weeks following discharge
[2021-07-26 10:29] LABS: African American GFR (CKD) 115.7 (60.0-200.0); Anion Gap 8.9 mmol/L (10.00-18.00); BUN/Creat Ratio 5.16 Ratio (12.00-20.00); Blood Urea Nitrogen 4.1 mg/dL (9.0-27.0); Calcium 8.3 mg/dL (8.7-10.3); Carbon Dioxide 24.8 mmol/L (20.0-27.5); Non-African American GFR(CKD) 99.8 (60.0-200.0); Potassium 3.8 mmol/L (3.5-5.5)
[2021-07-26] MEDS: ACETAMINOPHEN TAB 325 MG TAB PO PRN ×2 (15:21→20:16)
--- NOTE | 2021-07-26 16:12 | XR ---
EXAMINATION TYPE: XR chest 2V DATE OF EXAM: 07/26/2021 COMPARISON: 07/02/2021 INDICATION: Fever hypoxia TECHNIQUE: Frontal and lateral views of the chest are obtained. FINDINGS: The heart size is normal. The pulmonary vasculature is normal. While bibasilar nonspecific infiltrates are present. Correlate for subsegmental atelectasis. Consider atypical pneumonia within the differential. IMPRESSION: 1. Very mild subsegmental atelectasis or atypical pneumonia within the lung bases. Follow-up can be p erformed as clinically indicated.
[2021-07-26] MEDS: PIPERACILLIN-TAZOBACTAM 3.375 GM in SODIUM CHLORIDE 0.9% 100 ML IVPB SCH (17:16)
[2021-07-26] MEDS: QUEtiapine 100 MG TAB PO SCH (20:18)
[2021-07-26] MEDS: LORazepam 1 MG TAB PO SCH (20:18)
[2021-07-27] MEDS: PIPERACILLIN-TAZOBACTAM 3.375 GM in SODIUM CHLORIDE 0.9% 100 ML IVPB SCH ×2 (00:06→08:18)
--- NOTE | 2021-07-27 00:08 | P.CONS ---
History of Present Illness - Reason for Consult Consult date: 07/25/21 medical eval - History of Present Illness Cristino Johansen is a 56 yo M with PMH of spinal stenosis, major depression who is admitted for scheduled lumbar laminectomy and decompression. He is POD#1, reports significant pain in the low back with movement but is otherwise feeling well. No chest pain, shortness of breath, fever, chills. He denies cough. Pt's vitals stable after surgery, low grade temp of 99 overnight. WBC 9.4, Cr 0.8. Review of Systems All systems: negative Constitutional: Reports weakness, Denies chills, Denies fever Eyes: denies blurred vision, denies pain Ears, nose, mouth and throat: Denies headache, Denies sore throat Cardiovascular: Denies chest pain, Denies shortness of breath Respiratory: Denies cough Gastrointestinal: Denies abdominal pain, Denies diarrhea, Denies nausea, Denies vomiting Musculoskeletal: Reports low back pain, Denies myalgias Integumentary: Denies pruritus, Denies rash Neurological: Denies numbness, Denies weakness Psychiatric: Denies anxiety, Denies depression Endocrine: Denies fatigue, Denies weight change Past Medical History Past Medical History: Asthma, CVA/TIA, Musculoskeletal Disorder Additional Past Medical History / Comment(s): RIGHT LOWER LEG VARICOSE VEINS., TIA August 2020-left hand feels cold all the time History of Any Multi-Drug Resistant Organisms: None Reported Past Surgical History: Appendectomy, Hernia Repair, Orthopedic Surgery, Tonsillectomy Additional Past Surgical History / Comment(s): BLUE shoulder surgery. HERNIA X3. SINUS SURGERY 2 YEARS AGO, right elbow surg. Past Anesthesia/Blood Transfusion Reactions: No Reported Reaction, Family History of Problems w/ Anesthesia Additional Past Anesthesia/Blood Transfusion Reaction / Comm: States Father during surgery but was not sure what happened, HAD BAD HEART. Past Psychological History: No Psychological Hx Reported Smoking Status: Current some day smoker Past Alcohol Use History: Heavy Additional Past Alcohol Use History / Comment(s): Drinks approx. 14 drinks per week, Smokes 1/2 PPD, X30 YEARS. Past Drug Use History: Marijuana Additional Drug Use History / Comment(s): occasional use - Past Family History Mother Family Medical History: No Reported History Father Family Medical History: Coronary Artery Disease (CAD), Diabetes Mellitus Medications and Allergies Home Medications Medication Instructions Recorded Confirmed Type Albuterol Sulfate [Proair Hfa] 2 puff INHALATION RT-Q6H PRN 06/06/16 07/24/21 History Fluticasone/Umeclidin/Vilanter 1 puff INHALATION RT-DAILY 08/29/19 07/24/21 History [Trelegy Ellipta 100-62.5-25] LORazepam [Ativan] 1 mg PO HS 08/29/19 07/24/21 History QUEtiapine [SEROquel] 100 mg PO HS 08/29/19 07/24/21 History Ibuprofen [Motrin] 800 mg PO Q8H PRN 07/23/21 07/24/21 History Cyclobenzaprine [Flexeril] 10 mg PO TID PRN #60 tab 07/26/21 Rx HYDROcodone/APAP 7.5-325MG [[place] 1 each PO Q4HR PRN #42 tab 07/26/21 Rx 7.5-325] Allergies Allergy/AdvReac Type Severity Reaction Status Date / Time No Known Allergies Allergy Verified 07/24/21 07:22 Physical Exam Vitals: Vital Signs Temp Pulse Resp BP BP Pulse Ox 07/26/21 20:00 99.4 F 90 16 106/67 97 07/26/21 17:21 98.1 F 07/26/21 16:47 100.4 F H 07/26/21 15:58 101.2 F H 07/26/21 14:00 103.2 F H 106 H 18 104/66 91 L 07/26/21 08:25 95 07/26/21 08:00 100.7 F H 101 H 18 114/62 90 L 07/26/21 01:51 99.9 F H 95 16 118/68 95 Intake and Output 07/26/21 07/26/21 07/27/21 14:59 22:59 06:59 Other: # Voids 3 General: well nourished, well developed, NAD. Vitals reviewed Eyes: PERRL, EOMI, conjunctiva normal HENT: normocephalic, mucus membranes moist Neck: supple, no JVD Lungs: normal respiratory effort, no wheezes or rales CV: Regular rate and rhythm, no murmur. Peripheral pulses 2+ Abdomen: soft, nondistended, no organomegaly Lymph: no cervical or axillary LAD Skin: warm and dry. Neuro: A&Ox3, normal mood and affect Results CBC & Chem 7: 07/25/21 04:58 07/26/21 06:55 Labs: Abnormal Lab Results - Last 24 Hours (Table) 07/26/21 07/26/21 Range/Units 06:55 16:11 Anion Gap 8.90 L (10.00-18.00) mmol/L BUN 4.1 L (9.0-27.0) mg/dL BUN/Creatinine Ratio 5.16 L (12.00-20.00) Ratio Glucose 154 H (70-110) mg/dL Calcium 8.3 L (8.7-10.3) mg/dL Procalcitonin 0.14 H (0.02-0.09) ng/mL Assessment and Plan Plan: 1. S/p lumbar laminectomy. Management per Ortho. Pain control. Encourage use of IS and upright as tolerated. 2. Major depression. Continue with seorquel, valium
--- NOTE | 2021-07-27 00:12 | P.PN ---
Subjective Progress Note Date: 07/26/21 His pain is improved today although still complains of fairly severe low back pain. He has been febrile today with Tmax 102. He reports some cough and was placed on oxygen overnight. CXR today showing bibasilar infiltrates vs atelectasis. Procalcitonin today 0.14. Objective - Vital Signs Vital signs: Vital Signs Temp 99.4 F 07/26/21 20:00 Pulse 90 07/26/21 20:00 Resp 16 07/26/21 20:00 BP 106/67 07/26/21 20:00 Pulse Ox 97 07/26/21 20:00 Intake & Output 07/26/21 07/26/21 07/27/21 06:59 18:59 06:59 Other: # Voids 3 - Exam General: well nourished, well developed, NAD. Vitals reviewed Lungs: normal respiratory effort, no wheezes. Rales at bases CV: Regular rate and rhythm, no murmur. Peripheral pulses 2+ Abdomen: soft, nondistended, no organomegaly Skin: warm and dry. - Labs CBC & Chem 7: 07/25/21 04:58 07/26/21 06:55 Labs: Abnormal Lab Results - Last 24 Hours (Table) 07/26/21 07/26/21 Range/Units 06:55 16:11 Anion Gap 8.90 L (10.00-18.00) mmol/L BUN 4.1 L (9.0-27.0) mg/dL BUN/Creatinine Ratio 5.16 L (12.00-20.00) Ratio Glucose 154 H (70-110) mg/dL Calcium 8.3 L (8.7-10.3) mg/dL Procalcitonin 0.14 H (0.02-0.09) ng/mL Assessment and Plan Plan: 1. S/p lumbar laminectomy. Management per Ortho. Pain control. Encourage use of IS and upright as tolerated. 2. Aspiration pneumonia. Check blood culture, sputum culture. Start empiric zosyn. Wean O2 as tolerated 3. Major depression. Continue with seorquel, valium
[2021-07-27 04:19] LABS: Basophils % (A) 1 %; Eosinophils % (A) 1 %; HCT 35.6 % (39.0-53.0); HGB 11.2 gm/dL (13.0-17.5); Lymphocytes # (A) 0.7 k/uL (1.0-4.8); Lymphocytes % (A) 14 %; MCH 30.9 pg (25.0-35.0); MCHC 31.6 g/dL (31.0-37.0); Mean Platelet Volume 7.5; Monocytes # (A) 0.5 k/uL (0-1.0); Monocytes % (A) 10 %; Neutrophils # (A) 3.4 k/uL (1.3-7.7); Neutrophils % (A) 72 %; Platelet Count 162 k/uL (150-450); RBC 3.63 m/uL (4.30-5.90); RDW 14.1 % (11.5-15.5); WBC 4.8 k/uL (3.8-10.6)
[2021-07-27] MEDS: SODIUM CHLORIDE 0.9% 1,000 ML IV SCH (05:14)
[2021-07-27] MEDS: LACTATED RINGERS 1,000 ML IV SCH (05:22)
[2021-07-27 07:25] VITALS: RESP 17
[2021-07-27] MEDS ORDERED: PANTOPRAZOLE 40 MG TABLET PO SCH (07:30)
[2021-07-27] MEDS: IPRATROPIUM 0.5 MG/2.5 ML NEBU INHALATION SCH ×2 (08:05→12:51)
[2021-07-27] MEDS: SYMBICORT 80-4.5 MCG INHALER INHALATION SCH (08:05)
[2021-07-27] MEDS: SENNOSIDES-DOCUSATE SODIUM 1 EACH TAB PO SCH (08:20)
[2021-07-27] MEDS: ACETAMINOPHEN TAB 325 MG TAB PO PRN (08:20)
[2021-07-27] MEDS: CYCLOBENZAPRINE 10 MG TAB PO PRN (08:23)
[2021-07-27 14:20] VITALS: BP 114/73; PULSE 78; TEMP 97.7
--- NOTE | 2021-07-27 14:58 | P.DS ---
Providers Date of admission: 07/26/21 12:58 Attending physician: Megan Crum Consults: 07/24/21 10:47 Consult Physician Routine Consulting Provider: Stoney Pedro Consult Reason/Comments: Medical management Do you want consulting provider notified?: Yes Primary care physician: Lashawn Timmons [facility] Course: The patient presented on the day of admission as per their operative note. He is doing much better. He is ambulatory around his room independently. He is voiding freely he has had a bowel movement and is tolerating his diet well. His tolerating pain well with oral medications. He says his legs are doing well. Physical Exam The incision site is clean dry and intact. There is no erythema no drainage. There is no purulence no evidence of infection. There is no active drainage in his back. Abdomen soft and nontender. Chest has good excursion with deep inspiration and expiration. The patient has active and passive range of motion intact at the upper and lower extremities. There is no acute change in neurologic status. He is ambulating well and has sustained dorsal flexion plantarflexion and EHL intact. Hospital Course Postoperative day #3 status post minimally invasive decompression and fusion L5 S1 for spondylolisthesis with spinal stenosis and lower extremity radiculopathy. Patient is doing well and making good progress at this point. The patient has been making good progress postoperatively. They have completed the prophylactic antibiotics without any signs or symptoms of infection. The patient has been able to advance their diet, and is tolerating diet adequately. The pain was initially controlled with IV medications and is now controlled appropriately with oral medications. The patient has been able to increase their mobilization. The patient has progressed appropriately. I think they are in good stable condition for discharge today. They will be sent home with appropriate prescriptions. I answered their questions to the best of my ability in a language that they can understand and they are agreeable with the plan. They will follow up as directed in approximately 2 weeks or sooner if he is having a problem. Patient Condition at Discharge: Good Plan - Discharge Summary Discharge Rx Participant: No New Discharge Prescriptions: New Cyclobenzaprine [Flexeril] 10 mg PO TID PRN #60 tab PRN Reason: Muscle Spasm HYDROcodone/APAP 7.5-325MG [[place] 7.5-325] 1 each PO Q4HR PRN #42 tab PRN Reason: Pain No Action Albuterol Sulfate [Proair Hfa] 2 puff INHALATION RT-Q6H PRN PRN Reason: Shortness Of Breath QUEtiapine [SEROquel] 100 mg PO HS LORazepam [Ativan] 1 mg PO HS Fluticasone/Umeclidin/Vilanter [Trelegy Ellipta 100-62.5-25] 1 puff INHALATION RT-DAILY Ibuprofen [Motrin] 800 mg PO Q8H PRN PRN Reason: Pain Discharge Medication List Albuterol Sulfate [Proair Hfa] 2 puff INHALATION RT-Q6H PRN 06/06/16 [History] Fluticasone/Umeclidin/Vilanter [Trelegy Ellipta 100-62.5-25] 1 puff INHALATION RT-DAILY 08/29/19 [History] LORazepam [Ativan] 1 mg PO HS 08/29/19 [History] QUEtiapine [SEROquel] 100 mg PO HS 08/29/19 [History] Ibuprofen [Motrin] 800 mg PO Q8H PRN 07/23/21 [History] Cyclobenzaprine [Flexeril] 10 mg PO TID PRN #60 tab 07/26/21 [Rx] HYDROcodone/APAP 7.5-325MG [[place] 7.5-325] 1 each PO Q4HR PRN #42 tab 07/26/21 [Rx] Follow up Appointment(s)/Referral(s): Megan Curm DO [Doctor of Osteopathic Medicine] - 2 Weeks Lashawn Timmons MD [Primary Care Provider] - As Needed Patient Instructions/Handouts: *Surgery [facility] - ([facility]) Lumbar Surgery Discharge Instructions, Hydrocodone/Acetaminophen (By mouth), Cyclobenzaprine (By mouth), Lumbar Spinal Fusion (DC), Lumbar Discectomy (DC), Laminectomy (DC) Activity/Diet/Wound Care/Special Instructions: Keep site clean. May shower with waterproof Tegaderm intact. Do not soak in a tub. After 72 hours postoperatively, patient May remove dressing and then may shower with area uncovered. Leave glue intact and allow it to fray off on its own. May ambulate as tolerated. Avoid heavy or rigorous activity. No repetitive bending twisting or lifting. No overhead work. Discharge Disposition: HOME SELF-CARE
--- NOTE | 2021-07-27 19:31 | PN ---
PROGRESS NOTE DATE OF SERVICE: 07/27/2021 This 56-year-old gentleman who was admitted after lumbar spine surgery is being closely monitored. No chest pain. No palpitations. No fever. PHYSICAL EXAMINATION: Pulse is 78, blood pressure 148/73, respiration 17. HEENT: Conjunctivae normal. NECK: No jugular venous distention. CARDIOVASCULAR: S1, S2 muffled. RESPIRATION: Breath sounds diminished at the bases. No rhonchi. No crackles. ABDOMEN: Soft. NERVOUS SYSTEM: No focal deficit. LABS: Reviewed. ASSESSMENT: 1. Status post decompression laminectomy, L5-S1. 2. Asthma. 3. Cerebrovascular accident, transient ischemic attack. 4. Degenerative joint disease. RECOMMENDATIONS AND DISCUSSION: I recommend to resume the home medications. Follow with primary physician after discharge. Continue incentive spirometry. Continue the rest of the medications. Rest of the recommendations per Orthopedic Surgery. MMODL / IJN: [id number] /
--- NOTE | 2021-07-30 12:15 | CDI ---
Documentation Clarification Form Date: 07/30/2021 12:01:23 PM From: Ricky Meredith Admit Date: 07/26/2021 12:58:00 PM Patient Name: Cristino Johansen Visit Number: [id number] Discharge Date: 07/27/2021 03:13:00 PM ATTENTION: The Clinical Documentation Specialists (CDI) and [facility] Coding Staff appreciate your assistance in clarifying documentation. Please respond to the clarification below the line at the bottom and electronically sign. The CDI & [facility] Coding staff will review the response and follow-up if needed. Please note: Queries are made part of the Legal Health Record. If you have any questions, please contact the author of this message via ITS. Dr. Megan Crum Aspiration pneumonia is documented in progress note 5/6, but is not noted in subsequent documentation. Clarification is requested. History/Risk Factors: spinal surgery Clinical Indicators: CXR-possible atypical PNA Treatment: IV zozyn to cover Please clarify if the [insert diagnosis] is: [ ] aspiration pneumonia confirmed, remains under treatment [ ] aspiration pneumonia confirmed, resolved [ ] aspiration pneumonia ruled out [ ] Other condition, please specify [x ] Unable to determine (please check with medical consult service) MTDD
== END 2021-07-27 15:13 | disposition home or self-care (01) | DRG 455 ==
LOC: OR 06:38 → 4SSUR 10:25 → OR 21:58 → OBSVTOIN 07-26 12:58
PROVIDERS: ADMIT Orthopaedic Surgery Orthopaedic Surgery of the Spine; ATTEND Orthopaedic Surgery Orthopaedic Surgery of the Spine
PROC: 0SG3071 Fusion of Lumbosacral Joint with Autologous Tissue Substitute, Posterior Approach, Posterior Column, Open Approach (ICD-10-PCS; 2021-07-24)
PROC: 0SB40ZZ Excision of Lumbosacral Disc, Open Approach (ICD-10-PCS; 2021-07-24)
PROC: 07DS0ZZ Extraction of Vertebral Bone Marrow, Open Approach (ICD-10-PCS; 2021-07-24)
PROC: 0SG30AJ Fusion of Lumbosacral Joint with Interbody Fusion Device, Posterior Approach, Anterior Column, Open Approach (ICD-10-PCS; principal; 2021-07-24 08:00)
DX: M48.07 Spinal stenosis, lumbosacral region (principal); M43.17 Spondylolisthesis, lumbosacral region; M51.16 Intervertebral disc disorders with radiculopathy, lumbar region; F17.200 Nicotine dependence, unspecified, uncomplicated; J45.909 Unspecified asthma, uncomplicated; M19.90 Unspecified osteoarthritis, unspecified site; M41.86 Other forms of scoliosis, lumbar region; Z82.49 Family history of ischemic heart disease and other diseases of the circulatory system; Z83.3 Family history of diabetes mellitus; Z86.73 Personal history of transient ischemic attack (TIA), and cerebral infarction without residual deficits; F32.9 Major depressive disorder, single episode, unspecified
CPT/HCPCS: 36415; 71046; 72100; 80048; 84145; 85025; 86850; 86900; 86901; 87040; 94760

== ENCOUNTER 2022-02-02 09:27 | Emergency (ER) | payer BC ==
[2022-02-02 09:36] VITALS: TEMP 98.5
--- NOTE | 2022-02-02 09:54 | ED ---
General Adult HPI - General Chief complaint: Recheck/Abnormal Lab/Rx Stated complaint: rib pain Time Seen by Provider: 02/02/22 09:36 Source: patient, RN notes reviewed Mode of arrival: ambulatory Limitations: no limitations - History of Present Illness Initial comments: This is a 56-year-old male who presents to the emergency department for right rib pain. States that 2 days ago, he woke up with pain and bruising to the right ribs. He has also been coughing for the last 3 days. He is having difficulty taking a deep breath due to the pain. Denies any known injury, but states that he may have overexerted himself at work. 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 He is treating his pain with ibuprofen 800 mg which he states is somewhat effective. His primary care provider sent him to the emergency department for x-rays and a possible computed tomography scan. He does have a history of broken ribs and states that this feels exactly the same. Denies any fevers, chills, sore throat, cough, dyspnea, chest pain, palpitations, abdominal pain, nausea, vomiting, diarrhea, back pain, or headaches. MD Complaint: rib pain Onset/Timin -: days(s) - Related Data Home Medications Medication Instructions Recorded Confirmed Albuterol Sulfate [Proair Hfa] 2 puff INHALATION RT-Q6H PRN 06/06/16 07/24/21 Fluticasone/Umeclidin/Vilanter 1 puff INHALATION RT-DAILY 08/29/19 07/24/21 [Trelegy Ellipta 100-62.5-25] LORazepam [Ativan] 1 mg PO HS 08/29/19 07/24/21 QUEtiapine [SEROquel] 100 mg PO HS 08/29/19 07/24/21 Ibuprofen [Motrin] 800 mg PO Q8H PRN 07/23/21 07/24/21 Previous Rx's Medication Instructions Recorded Cyclobenzaprine [Flexeril] 10 mg PO TID PRN #60 tab 07/26/21 HYDROcodone/APAP 7.5-325MG [[place] 1 each PO Q4HR PRN #42 tab 07/26/21 7.5-325] Allergies Allergy/AdvReac Type Severity Reaction Status Date / Time No Known Allergies Allergy Verified 02/02/22 09:35 Review of Systems ROS Statement: Those systems with pertinent positive or pertinent negative responses have been documented in the HPI. ROS Other: All systems not noted in ROS Statement are negative. Past Medical History Past Medical History: Asthma, COPD, CVA/TIA, Musculoskeletal Disorder Additional Past Medical History / Comment(s): RIGHT LOWER LEG VARICOSE VEINS., TIA August 2020-left hand feels cold all the time History of Any Multi-Drug Resistant Organisms: None Reported Past Surgical History: Appendectomy, Hernia Repair, Orthopedic Surgery, Tonsillectomy Additional Past Surgical History / Comment(s): BLUE shoulder surgery. HERNIA X3. SINUS SURGERY 2 YEARS AGO, right elbow surg. Past Anesthesia/Blood Transfusion Reactions: No Reported Reaction, Family History of Problems w/ Anesthesia Additional Past Anesthesia/Blood Transfusion Reaction / Comment(s): States Father during surgery but was not sure what happened, HAD BAD HEART. Past Psychological History: No Psychological Hx Reported Smoking Status: Current every day smoker Past Alcohol Use History: Heavy Past Drug Use History: Marijuana - Past Family History Mother Family Medical History: No Reported History Father Family Medical History: Coronary Artery Disease (CAD), Diabetes Mellitus General Exam Limitations: no limitations General appearance: alert, in no apparent distress Head exam: Present: atraumatic, normocephalic, normal inspection Respiratory exam: Present: normal lung sounds bilaterally. Absent: respiratory distress, wheezes, rales, rhonchi, stridor Cardiovascular Exam: Present: regular rate, normal rhythm, normal heart sounds. Absent: systolic murmur, diastolic murmur, rubs, gallop, clicks GI/Abdominal exam: Present: soft, normal bowel sounds, other (Tenderness and ecchymosis over the right ribs, there is otherwise no abdominal tenderness.). Absent: distended Neurological exam: Present: alert, oriented X3, CN II-XII intact Psychiatric exam: Present: normal affect, normal mood Course Vital Signs 02/02/22 02/02/22 09:33 11:19 Temperature 98.5 F Pulse Rate 70 60 Respiratory 20 18 Rate Blood Pressure 120/83 122/80 O2 Sat by Pulse 99 99 Oximetry Medical Decision Making - Medical Decision Making This is a 56-year-old male who presents to the emergency department for right rib pain. X-ray of the right ribs with PA chest and KUB were ordered per the request of the patient's primary care provider. My interpretation of the rib and chest x-ray reveals multiple right-sided rib fractures, it is unclear if these are chronic or acute. My interpretation of the KUB x-ray reveals no signs of free air. Given the inconclusive findings on the x-ray, computed tomography scan of the chest was obtained. My interpretation of this reveals rib fractures of 8, 9, and 10. The radiologist made note of previously healed rib fractures to 8, 9, and 10 as well as the acute fractures. There is no sign of pneumothorax. The injury does not appear to be as new as the patient states, as the ecchymosis is now yellow in color. Advised he continue to take ibuprofen and Tylenol for pain relief. He can also purchase [id number] lidocaine cream or patches. He was given a rib binder per his request. Additionally, I instructed him to take several deep breaths each day to reduce his risk of developing a secondary pneumonia. Return precautions reviewed in depth, the patient is instructed to return to the emergency department with any new, worsening, or concerning symptoms. Patient verbalized understanding. This case was discussed in detail with the attending ED physician. Presentation, findings, and treatment plan discussed in detail as well. - Radiology Data Radiology results: report reviewed, image reviewed Disposition Clinical Impression: Right rib fracture Disposition: HOME SELF-CARE Instructions (If sedation given, give patient instructions): Rib Fracture (ED) Additional Instructions: Return to the emergency department with any new, worsening, or concerning symptoms. Alternate with ibuprofen and Tylenol as needed for pain relief. Apply ice to the painful areas, you can also use [id number] lidocaine cream. Make sure that you're taking several deep breaths each day to reduce your risk of developing a secondary pneumonia. Follow up with your primary care provider in 1-2 days. Is patient prescribed a controlled substance at d/c from ED?: No Referrals: Lashawn Timmons MD [Primary Care Provider] - 1-2 days
--- NOTE | 2022-02-02 10:05 | XR ---
EXAMINATION TYPE: XR KUB DATE OF EXAM: 02/02/2022 COMPARISON: NONE HISTORY: Pain TECHNIQUE: Single supine KUB image of the abdomen is obtained FINDINGS: Mild small bowel distention of a few scattered air-fluid levels may reflect ileus. Gas and fecal material is seen in non-distended colon. No convincing evidence for pneumoperitoneum. No unusual calcifications. The lung bases are clear. The osseous structures are intact. Lumbar fusion and pedicular screws. Moderate scoliotic curvature o f the lumbar spine convex to the left. IMPRESSION: 1. Nonspecific nonobstructive bowel gas pattern.
--- NOTE | 2022-02-02 10:18 | XR ---
EXAMINATION TYPE: XR ribs RT w pa chest xray DATE OF EXAM: 02/02/2022 COMPARISON: 622 HISTORY: Pain TECHNIQUE: Single view of the chest 4 views of the ribs are submitted. FINDINGS: The lungs are clear. No Evidence for pneumothorax. No evidence for focal contusion. Medi astinal structures are midline. Evaluation of the ribs fails to demonstrate Nonacute fractures of ri ght ribs 8 and 9 and 10. Also remote fracture of left rib #5. There may be acute component involving rib #9 on the right. Correlate clinically point tenderness. IMPRESSION: Chronic rib fractures although there may be an acute component involving right rib #9.
--- NOTE | 2022-02-02 10:57 | CT ---
EXAMINATION TYPE: CT chest wo con DATE OF EXAM: 02/02/2022 COMPARISON: None HISTORY: Posterior right rib pain CT DLP: 280.[address] of the chest was performed with lung and mediastinal window settings submitted. The la ck of contrast limits evaluation of the vascular, mediastinal and parenchymal structures including th e upper abdomen. LUNGS: The lungs are clear and free of infiltrate. No atelectasis. No pulmonary nodule or mass is de tected. No pleural effusion. No CT evidence of interstitial lung disease. Mild upper lobe emphysema tous changes noted. MEDIASTINUM/[place]: Thoracic aorta is of normal caliber with limited evaluation given lack of contrast . The heart is not enlarged. No evidence for mediastinal mass. No lymph nodes greater than 1cm. UPPER ABDOMEN: No significant abnormality is seen. OTHER: Noted are healed rib fractures of right ribs 8 , 9 and 10 however there also acute fractures n oted of right ribs 8 , 9 and 10. See bookmarked images. These rib fractures are nondisplaced. Healed rib fracture of left rib 5 Posteriorly. Severe nonacute compression fracture involving T5 vertebral body. No evidence for bony retropulsion. IMPRESSION: 1. Nondisplaced acute rib fractures of right ribs 8, 9 and 10. No evidence for pneumothorax. Also no tomi are healed rib fractures of right ribs 8, 9 and 10.
[2022-02-02 11:20] VITALS: BP 122/80; PULSE 60; RESP 18
== END 2022-02-02 11:25 | disposition home or self-care (01) ==
LOC: EC 09:27
DX: S22.31XA Fracture of one rib, right side, initial encounter for closed fracture (principal); J45.909 Unspecified asthma, uncomplicated; J44.9 Chronic obstructive pulmonary disease, unspecified; F17.200 Nicotine dependence, unspecified, uncomplicated; F12.90 Cannabis use, unspecified, uncomplicated; Z79.51 Long term (current) use of inhaled steroids; Z79.899 Other long term (current) drug therapy; X58.XXXA Exposure to other specified factors, initial encounter
CPT/HCPCS: 71250; 74018; 99284

== ENCOUNTER 2022-03-14 23:25 | Observation (INO) | payer BC ==
--- NOTE | 2022-03-14 23:31 | ED ---
Alcohol HPI - General Stated Complaint: ETOH Time Seen by Provider: 03/14/22 23:27 Source: RN notes reviewed, old records reviewed Mode of arrival: EMS Limitations: no limitations - History of Present Illness Initial Comments: This is a 56-year-old male to the emergency department for evaluation patient is significantly unconsciousness, severely positive for alcohol intoxication. Patient has no recent sick contacts or travel history. 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) Previous Visits for Alcohol Intoxication?: Yes Recent Trauma: Yes Associated Symptoms: denies other symptoms Treatments Prior to Arrival: none Chronic Alcohol Use: Yes - Related Data Home Medications Medication Instructions Recorded Confirmed Albuterol Sulfate [Proair Hfa] 2 puff INHALATION RT-Q6H PRN 06/06/16 07/24/21 Fluticasone/Umeclidin/Vilanter 1 puff INHALATION RT-DAILY 08/29/19 07/24/21 [Trelegy Ellipta 100-62.5-25] LORazepam [Ativan] 1 mg PO HS 08/29/19 07/24/21 QUEtiapine [SEROquel] 100 mg PO HS 08/29/19 07/24/21 Ibuprofen [Motrin] 800 mg PO Q8H PRN 07/23/21 07/24/21 Previous Rx's Medication Instructions Recorded Cyclobenzaprine [Flexeril] 10 mg PO TID PRN #60 tab 07/26/21 HYDROcodone/APAP 7.5-325MG [[place] 1 each PO Q4HR PRN #42 tab 07/26/21 7.5-325] Allergies Allergy/AdvReac Type Severity Reaction Status Date / Time No Known Allergies Allergy Verified 03/14/22 23:31 Review of Systems ROS Statement: Those systems with pertinent positive or pertinent negative responses have been documented in the HPI. ROS Other: All systems not noted in ROS Statement are negative. Past Medical History Past Medical History: Asthma, COPD, CVA/TIA, Musculoskeletal Disorder Additional Past Medical History / Comment(s): RIGHT LOWER LEG VARICOSE VEINS., TIA August 2020-left hand feels cold all the time History of Any Multi-Drug Resistant Organisms: None Reported Past Surgical History: Appendectomy, Hernia Repair, Orthopedic Surgery, Tonsillectomy Additional Past Surgical History / Comment(s): BLUE shoulder surgery. HERNIA X3. SINUS SURGERY 2 YEARS AGO, right elbow surg. Past Anesthesia/Blood Transfusion Reactions: No Reported Reaction, Family History of Problems w/ Anesthesia Additional Past Anesthesia/Blood Transfusion Reaction / Comment(s): States Father during surgery but was not sure what happened, HAD BAD HEART. Past Psychological History: No Psychological Hx Reported Smoking Status: Current every day smoker Past Alcohol Use History: Heavy Past Drug Use History: Marijuana - Past Family History Mother Family Medical History: No Reported History Father Family Medical History: Coronary Artery Disease (CAD), Diabetes Mellitus General Exam Limitations: altered mental status General appearance: appears intoxicated, anxious, lethargic, in distress Head exam: Present: atraumatic, normocephalic, normal inspection Eye exam: Present: normal appearance, PERRL, EOMI. Absent: scleral icterus, conjunctival injection, periorbital swelling ENT exam: Present: normal exam, mucous membranes dry Neck exam: Present: normal inspection. Absent: tenderness, meningismus, lymphadenopathy Respiratory exam: Present: normal lung sounds bilaterally, wheezes, decreased breath sounds, prolonged expiratory. Absent: respiratory distress, rales, rhonchi, stridor Cardiovascular Exam: Present: regular rate, normal rhythm, normal heart sounds. Absent: systolic murmur, diastolic murmur, rubs, gallop, clicks GI/Abdominal exam: Present: soft, normal bowel sounds. Absent: distended, tenderness, guarding, rebound, rigid Extremities exam: Present: normal inspection, full ROM, normal capillary refill. Absent: tenderness, pedal edema, joint swelling, calf tenderness Back exam: Present: normal inspection Neurological exam: Present: alert, oriented X3, CN II-XII intact Psychiatric exam: Present: depressed, flat affect Skin exam: Present: warm, dry, intact, normal color. Absent: rash Course Vital Signs 03/14/22 03/14/22 03/14/22 23:27 23:40 23:42 Temperature 97.7 F Pulse Rate 80 75 Respiratory 17 16 Rate Blood Pressure 109/71 101/69 O2 Sat by Pulse 94 L 89 L 92 L Oximetry - Reevaluation(s) Reevaluation #1: 03/14/22 23:51 Medical records reviewed Reevaluation #2: 03/15/22 00:43 Patient has no real improvement here in the ER - Consultations Consultation #1: Spoke with boy who agrees to admit this patient Medical Decision Making - Medical Decision Making 56 male to the emergency department for evaluation patient coming in for acute alcohol intoxication severe with minimal level responsiveness, patient will be admitted for supportive care monitoring of airway oxygen and hydration - Lab Data Result diagrams: 03/14/22 23:53 Lab Results 03/14/22 Range/Units 23:53 WBC 8.8 (3.8-10.6) k/uL RBC 4.11 L (4.30-5.90) m/uL Hgb 13.6 (13.0-17.5) gm/dL Hct 39.7 (39.0-53.0) % MCV 96.5 (80.0-100.0) fL MCH 33.0 (25.0-35.0) pg MCHC 34.2 (31.0-37.0) g/dL RDW 13.1 (11.5-15.5) % Plt Count 288 (150-450) k/uL MPV 7.7 Neutrophils % 49 % Lymphocytes % 34 % Monocytes % 5 % Eosinophils % 8 % Basophils % 1 % Neutrophils # 4.3 (1.3-7.7) k/uL Lymphocytes # 3.0 (1.0-4.8) k/uL Monocytes # 0.4 (0-1.0) k/uL Eosinophils # 0.7 (0-0.7) k/uL Basophils # 0.1 (0-0.2) k/uL Disposition Clinical Impression: Alcoholic intoxication Disposition: ADMITTED IP TO THIS HOSP Condition: Fair Is patient prescribed a controlled substance at d/c from ED?: No Referrals: Carole Matamoros DO [Primary Care Provider] - 1-2 days Time of Disposition: 00:45
[2022-03-14] MEDS ORDERED: SODIUM CHLORIDE 0.9% 500 ML 500 ML IV STA (23:43)
[2022-03-14] MEDS ORDERED: SODIUM CHLORIDE 0.9% 1,000 ML IV STA ×2 (23:43)
[2022-03-15 00:08] LABS: Basophils # (A) 0.1 k/uL (0-0.2); Basophils % (A) 1 %; Eosinophils # (A) 0.7 k/uL (0-0.7); Eosinophils % (A) 8 %; HCT 39.7 % (39.0-53.0); HGB 13.6 gm/dL (13.0-17.5); Lymphocytes % (A) 34 %; MCHC 34.2 g/dL (31.0-37.0); MCV 96.5 fL (80.0-100.0); Mean Platelet Volume 7.7; Monocytes # (A) 0.4 k/uL (0-1.0); Monocytes % (A) 5 %; Neutrophils # (A) 4.3 k/uL (1.3-7.7); Neutrophils % (A) 49 %; Platelet Count 288 k/uL (150-450); RBC 4.11 m/uL (4.30-5.90); RDW 13.1 % (11.5-15.5); WBC 8.8 k/uL (3.8-10.6)
[2022-03-15] MEDS ORDERED: THIAMINE 100 MG/ML 2 ML VIAL IM STA (00:39)
[2022-03-15] MEDS ORDERED: MORPHINE SULFATE 4 MG/ML SYRINGE IV PRN (00:39)
[2022-03-15] MEDS ORDERED: LORazepam 2 MG/ML INJ IV PRN ×3 (00:39)
[2022-03-15] MEDS ORDERED: NALOXONE 0.4 MG/ML 1 ML VIAL IV PRN (00:39)
[2022-03-15] MEDS ORDERED: ONDANSETRON 4 MG/2 ML VIAL IVP PRN (00:39)
[2022-03-15 00:52] LABS: ALT 21 U/L (4-49); AST 29 U/L (17-59); African American GFR (CKD) >90 (>60 ml/min/1.73 sqM); Albumin 3.8 g/dL (3.5-5.0); Alkaline Phosphatase 56 U/L (38-126); Anion Gap 11 mmol/L; Blood Urea Nitrogen 15 mg/dL (9-20); Calcium 9.2 mg/dL (8.4-10.2); Carbon Dioxide 22 mmol/L (22-30); Chloride 110 mmol/L (98-107); Glucose 92 mg/dL (74-99); Magnesium 1.9 mg/dL (1.6-2.3); Non-African American GFR(CKD) >90 (>60 ml/min/1.73 sqM); Phosphorus 4.7 mg/dL (2.5-4.5); Sodium 143 mmol/L (137-145); Total Bilirubin 0.2 mg/dL (0.2-1.3); Total Protein 6.1 g/dL (6.3-8.2)
[2022-03-15] MEDS: SODIUM CHLORIDE 0.9% 1,000 ML IV SCH ×2 (01:00→09:38)
[2022-03-15 01:18] LABS: Alcohol 253 mg/dL
--- NOTE | 2022-03-15 03:54 | P.HPIM ---
History of Present Illness H&P Date: 03/15/22 Chief Complaint: alcohol intoxication 56 year old male with alcohol dependance patient brought in by his due to severe alcohol intoxication, patient is sleeping, intoxicated, unable to provide any meaningful history ED chart was reviewed, blood work reviewed Review of Systems ROS unobtainable: due to mental status Past Medical History Past Medical History: Asthma, COPD, CVA/TIA, Musculoskeletal Disorder Additional Past Medical History / Comment(s): RIGHT LOWER LEG VARICOSE VEINS., TIA August 2020-left hand feels cold all the time History of Any Multi-Drug Resistant Organisms: None Reported Past Surgical History: Appendectomy, Hernia Repair, Orthopedic Surgery, Tonsillectomy Additional Past Surgical History / Comment(s): BLUE shoulder surgery. HERNIA X3. SINUS SURGERY 2 YEARS AGO, right elbow surg. Past Anesthesia/Blood Transfusion Reactions: No Reported Reaction, Family History of Problems w/ Anesthesia Additional Past Anesthesia/Blood Transfusion Reaction / Comment(s): States Father during surgery but was not sure what happened, HAD BAD HEART. Past Psychological History: No Psychological Hx Reported Smoking Status: Current every day smoker Past Alcohol Use History: Heavy Additional Past Alcohol Use History / Comment(s): Drinks approx. 14 drinks per week, Smokes 1/2 PPD, X30 YEARS. Past Drug Use History: Marijuana Additional Drug Use History / Comment(s): occasional use - Past Family History Mother Family Medical History: No Reported History Father Family Medical History: Coronary Artery Disease (CAD), Diabetes Mellitus Medications and Allergies Home Medications Medication Instructions Recorded Confirmed Type Albuterol Sulfate [Proair Hfa] 2 puff INHALATION RT-Q6H PRN 06/06/16 07/24/21 History Fluticasone/Umeclidin/Vilanter 1 puff INHALATION RT-DAILY 08/29/19 07/24/21 History [Trelegy Ellipta 100-62.5-25] LORazepam [Ativan] 1 mg PO HS 08/29/19 07/24/21 History QUEtiapine [SEROquel] 100 mg PO HS 08/29/19 07/24/21 History Ibuprofen [Motrin] 800 mg PO Q8H PRN 07/23/21 07/24/21 History Cyclobenzaprine [Flexeril] 10 mg PO TID PRN #60 tab 07/26/21 Rx HYDROcodone/APAP 7.5-325MG [[place] 1 each PO Q4HR PRN #42 tab 07/26/21 Rx 7.5-325] Allergies Allergy/AdvReac Type Severity Reaction Status Date / Time No Known Allergies Allergy Verified 03/14/22 23:31 Physical Exam Vitals: Vital Signs Temp Pulse Resp BP Pulse Ox 03/15/22 01:00 81 20 110/73 92 L 03/14/22 23:42 92 L 03/14/22 23:40 75 16 101/69 89 L 03/14/22 23:27 97.7 F 80 17 109/71 94 L Intake and Output 03/14/22 03/14/22 03/15/22 14:59 22:59 06:59 Other: Weight 65.317 kg Constitutional: No acute distress, sleeping, hard to arouse Eyes: Anicteric sclerae, moist conjunctiva, Pupils equal round reactive to light ENMT: NC/AT resists opening his mouth Neck: Supple, no masses, or JVD No carotid bruits No thyromegaly Lungs: Clear to auscultation Clear to percussion Normal respiratory effort, no accessory muscle use Cardiovascular: Heart regular in rate and rhythm, No murmurs, gallops, or rubs No peripheral edema Abdominal: Soft Nontender, no guarding, rebound or rigidity Abdomen moving with respiration Normoactive bowel sounds No hepatomegaly, No splenomegaly No palpable mass No abdominal wall hernia noted Skin: Normal temperature, tone, texture, turgor Extremities: No digital cyanosis No clubbing Pedal pulses intact and symmetrical Radial pulses intact and symmetrical No calf tenderness Psychiatric: sleeping acutely intoxicated , hard to arouse Neuro unable to perform patient is acutely intoxicated Lymphatics: no palpable cervical or supraclavicular lymph nodes Results CBC & Chem 7: 03/14/22 23:53 03/14/22 23:43 Labs: Abnormal Lab Results - Last 24 Hours (Table) 03/14/22 03/14/22 Range/Units 23:43 23:53 RBC 4.11 L (4.30-5.90) m/uL Chloride 110 H (98-107) mmol/L Phosphorus 4.7 H (2.5-4.5) mg/dL Total Protein 6.1 L (6.3-8.2) g/dL Serum Alcohol 253 H* mg/dL Thrombosis Risk Factor Assmnt - Choose All That Apply Any of the Below Risk Factors Present?: Yes Each Factor Represents 1 point: Abnormal pulmonary function (COPD), Age 41-60 years Other Risk Factors: No Other congenital or acquired thrombophilia - If yes, enter type in comment: No Thrombosis Risk Factor Assessment Total Risk Factor Score: 2 Thrombosis Risk Factor Assessment Level: Low Risk Assessment and Plan Assessment: acute moderately severe alcohol intoxication wiht alcohol dependance IVF hydration with normal saline Benzo per CIWA fall and seizure precautions thiamine daily PPI daily Zofran PRN full code DVT PPX heparin sc tid
[2022-03-15] MEDS ORDERED: HEPARIN SODIUM,PORCINE/PF 5,000 UNIT/0.5 ML SYRINGE SQ SCH (08:00)
[2022-03-15 08:06] VITALS: BP 111/64; RESP 17; TEMP 98
[2022-03-15] MEDS ORDERED: MULTIVITAMINS, THERA 1 EACH TAB PO SCH (09:00)
[2022-03-15] MEDS ORDERED: PANTOPRAZOLE 40 MG/10 ML VIAL IV SCH (09:00)
[2022-03-15] MEDS ORDERED: FOLIC ACID 1 MG TAB PO SCH (09:00)
--- NOTE | 2022-03-15 12:43 | P.DS ---
Providers Date of admission: 03/15/22 00:40 Expected date of discharge: 03/15/22 Attending physician: Rosmery Islas MD Primary care physician: Carole Matamoros [facility] Hospital Course: Patient is a 56-year-old male with PMH of alcohol abuse, COPD presents to the ED for lethargy and intoxication. In the ED, vital signs are stable. Patient did desaturate to 89% requiring 2 L nasal cannula. CBC showed RBC count of 4.11. CMP showed chloride of 110, phosphorus of 4.7, total protein is 6.1. Serum alcohol was 253. Patient was admitted for alcohol intoxication. Patient seen and examined this morning. He is much more awake. He denies any chest pain, shortness breath or palpitations. No nausea or vomiting. No fever or chills. Requesting to go home. General: non toxic, no distress, appears at stated age Derm: warm, dry Head: atraumatic, normocephalic, symmetric Eyes: EOMI, no lid lag, anicteric sclera Mouth: no lip lesion, mucus membranes moist Cardiovascular: S1S2 reg, no murmur Lungs: End expiratory wheezing bilateral, no rhonchi, no rales , no accessory muscle use Ext: no gross muscle atrophy, no edema, no contractures Neuro: no focal neuro deficits Psych: Alert, oriented, appropriate affect Discharge diagnosis: #Alcohol intoxication #Acute metabolic encephalopathy #Acute hypoxic respiratory failure Chronic conditions: History of COPD Plans to discharge the patient home pending home O2 eval. Patient be discharged home with the following instructions: Diet: Regular FU PCP within 1-2 days of DC. Refrain from drinking alcohol. Patient Condition at Discharge: Stable Plan - Discharge Summary New Discharge Prescriptions: Continue Albuterol Sulfate [Proair Hfa] 2 puff INHALATION RT-Q6H PRN PRN Reason: Shortness Of Breath QUEtiapine [SEROquel] 100 mg PO HS LORazepam [Ativan] 1 mg PO HS Fluticasone/Umeclidin/Vilanter [Trelegy Ellipta 100-62.5-25] 1 puff INHALATION RT-DAILY Triamcinolone 0.025% Cream [Kenalog 0.025% Cream] 1 applic TOPICAL BID PRN PRN Reason: Skin Irritation Ibuprofen [Motrin] 800 mg PO Q8H PRN PRN Reason: Pain Discharge Medication List Albuterol Sulfate [Proair Hfa] 2 puff INHALATION RT-Q6H PRN 06/06/16 [History] Fluticasone/Umeclidin/Vilanter [Trelegy Ellipta 100-62.5-25] 1 puff INHALATION RT-DAILY 08/29/19 [History] LORazepam [Ativan] 1 mg PO HS 08/29/19 [History] QUEtiapine [SEROquel] 100 mg PO HS 08/29/19 [History] Ibuprofen [Motrin] 800 mg PO Q8H PRN 07/23/21 [History] Triamcinolone 0.025% Cream [Kenalog 0.025% Cream] 1 applic TOPICAL BID PRN 03/15/22 [History] Follow up Appointment(s)/Referral(s): Carole Matamoros DO [Primary Care Provider] - 1-2 days Activity/Diet/Wound Care/Special Instructions: Diet: Regular FU PCP within 1-2 days of DC. Refrain from drinking alcohol. Discharge Disposition: HOME SELF-CARE
[2022-03-15 13:08] VITALS: PULSE 81
[2022-03-16] MEDS ORDERED: THIAMINE 100 MG TAB PO SCH (09:00)
== END 2022-03-15 13:30 | disposition home or self-care (01) ==
LOC: EC 23:25 → 6NMEDSUR 03-15 00:40
PROVIDERS: ADMIT Internal Medicine; ATTEND Internal Medicine
DX: F10.229 Alcohol dependence with intoxication, unspecified (principal); G93.41 Metabolic encephalopathy; J96.01 Acute respiratory failure with hypoxia; J44.9 Chronic obstructive pulmonary disease, unspecified; I83.91 Asymptomatic varicose veins of right lower extremity; F17.210 Nicotine dependence, cigarettes, uncomplicated; Y90.8 Blood alcohol level of 240 mg/100 ml or more; Z79.51 Long term (current) use of inhaled steroids; Z79.899 Other long term (current) drug therapy; Z86.73 Personal history of transient ischemic attack (TIA), and cerebral infarction without residual deficits; Z90.49 Acquired absence of other specified parts of digestive tract; Z98.890 Other specified postprocedural states; Z83.3 Family history of diabetes mellitus; Z82.49 Family history of ischemic heart disease and other diseases of the circulatory system
CPT/HCPCS: 96374; 96361; 99285; 36415; 94760; 80053; 83735; 84100; 85025; 80320; G0378; C9113

== ENCOUNTER → 2022-06-18 | Outpatient (CLI) | payer BC ==
--- NOTE | 2022-06-18 11:31 | CT ---
EXAMINATION TYPE: CT ChestAbdPelvis wo con CT DLP: 865 mGycm, Automated exposure control for dose reduction was used. DATE OF EXAM: 06/18/2022 11:21 AM COMPARISON: None. CLINICAL INDICATION:Male, 57 years old with history of R63.4abnormal weight loss Technique: Multiple axial images of the chest, abdomen, and pelvis were obtained. Two-dimensional cor onal and sagittal reconstructions were obtained. Contrast used: None Oral contrast used: with Oral Contrast Findings: CHEST: LUNGS/ PLEURA: Mild paraseptal and centrilobular emphysema changes throughout the lungs with some par enchymal scarring. Right middle lobe calcified granuloma Minor fissure. AIRWAY: Patent and unremarkable. HEART: Size within normal limits. MEDIASTINUM: No gross evidence of adenopathy. VASCULATURE: No aortic aneurysm. MUSCULOSKELETAL: No acute osseous abnormalities. Multiple nonhealed right-sided rib fractures involvi ng right ribs 9 through 12. SOFT TISSUES/LYMPH NODES: Unremarkable. LOWER NECK: No significant findings. ABDOMEN: ABDOMEN LIVER: Unremarkable GALLBLADDER AND BILE DUCTS: Unremarkable. PANCREAS: Unremarkable. SPLEEN: Unremarkable. ADRENAL GLANDS: Unremarkable. KIDNEYS AND URETERS: No evidence of hydronephrosis or renal calculus. The ureters are unremarkable. PELVIS BLADDER: Unremarkable REPRODUCTIVE: Unremarkable. ABDOMEN & PELVIS STOMACH AND BOWEL: No evidence of bowel obstruction. PERITONEUM: No evidence of pneumoperitoneum or free fluid. VASCULATURE: No evidence of aortic aneurysm. MUSCULOSKELETAL: No acute osseous abnormalities, postsurgical changes to the lumbar spine. Hardware a ppears intact. LYMPH NODES: No gross evidence for lymphadenopathy. SOFT TISSUE/ABDOMINAL WALL: Unremarkable IMPRESSION: Limited non IV contrast exam without evidence for mass. No finding to correlate with patient's weight loss. Mild emphysema changes. Nonfused right ribs and T12 fractures.
== END | disposition home or self-care (01) ==
LOC: RADCTMAIN 09:24
PROVIDERS: ATTEND Family Medicine
DX: J43.2 Centrilobular emphysema (principal); S22.089A Unspecified fracture of T11-T12 vertebra, initial encounter for closed fracture; R63.4 Abnormal weight loss
CPT/HCPCS: 71250; 74176